=== PATIENT | female | born 1985 | race Caucasian/White ===

== ENCOUNTER → 2019-09-26 16:50 | Outpatient (CLI) | payer OTHER, SELFPAY ==
--- NOTE | 2019-09-26 16:59 | RAD_ITS ---
STUDY: X-RAY CHEST REASON FOR EXAM: Female, 34 years old. pt swallowed a chicken bone 2 days ago, still having symptoms, mid chest pain discomfort from when she ate TECHNIQUE: PA and lateral views of the chest. COMPARISON: None. FINDINGS: The lungs are clear and expanded. There is no demonstrated pleural abnormality. Normal size heart. Normal mediastinum and carleen. Normal visualized pulmonary arteries. Normal visualized aortic arch and descending thoracic aorta. Normal visualized thoracic spine. Normal visualized ribs, clavicles, and shoulders. There is no demonstrated abnormality of the visualized soft tissue structures of the upper abdomen. RAD/Chest PA and Lateral IMPRESSION: Normal x-ray examination of the chest. Electronically Signed: Jelani Garcia MD at 17:16 EST Tel , Service support ,
== END ==
PROVIDERS: PCP Family Medicine; Referring Provider Registered Nurse; Visit Provider Registered Nurse
DX: T18.9XXA Foreign body of alimentary tract, part unspecified, initial encounter (principal)
CPT/HCPCS: 71046

== ENCOUNTER → 2019-10-01 | Outpatient (CLI) | payer OTHER, SELFPAY ==
[2019-10-06 11:53] LABS: HPV Reflexed? NOT INDICATED
== END | disposition home or self-care (01) ==
PROVIDERS: Referring Provider Obstetrics & Gynecology; Visit Provider Obstetrics & Gynecology
DX: Z12.4 Encounter for screening for malignant neoplasm of cervix (principal)
CPT/HCPCS: 88175; G0145

== ENCOUNTER → 2020-07-12 09:13 | Outpatient (CLI) | payer OTHER, SELFPAY ==
[2020-07-12 10:35] LABS: Thyroid Stim Hormone (TSH) 2.01 uIU/mL (0.358-3.74)
== END ==
PROVIDERS: PCP Family Medicine; Referring Provider Family Medicine; Visit Provider Family Medicine
DX: E04.1 Nontoxic single thyroid nodule (principal)
CPT/HCPCS: 36415; 84443

== ENCOUNTER → 2020-07-15 10:41 | Outpatient (CLI) | payer OTHER, SELFPAY ==
--- NOTE | 2020-07-15 10:51 | US_ITS ---
STUDY: THYROID ULTRASOUND REASON FOR EXAM: Female, 35 years old. NODULE FELT ON EXAM TECHNIQUE: Ultrasound evaluation of the thyroid was performed with real-time and static ho-scale imaging. COMPARISON: None. FINDINGS: RIGHT LOBE: The right lobe of the thyroid gland is slightly enlarged and measures 5.2 centimeters x 2.1 cm x 1.4 cm. There is a homogeneous echotexture. There is a 4 mm x 5 mm x 3 mm cystic nodule in the lower pole. LEFT LOBE: The left lobe of the thyroid gland is slightly enlarged and measures 5.2 cm x 2.1 cm x 1.3 cm. There is a homogeneous echotexture. There are no demonstrated solid, cystic or complex lesions. ISTHMUS: The isthmus measures 4 mm. The regional lymph nodes are normal. US/Thyroid IMPRESSION: Mild enlargement of the thyroid gland. 4 mm x 5 mm x 3 mm cyst in the lower pole of the right lobe. Electronically Signed: David Kaur, at 12:43 EST , Service support ,
== END ==
PROVIDERS: PCP Family Medicine; Referring Provider Family Medicine; Visit Provider Family Medicine
DX: E04.1 Nontoxic single thyroid nodule (principal)
CPT/HCPCS: 76536

== ENCOUNTER → 2020-08-13 14:23 | Outpatient (CLI) | payer OTHER, SELFPAY ==
--- NOTE | 2020-08-13 14:26 | BI_ITS ---
MAMMOGRAPHY - BILATERAL SCREENING REASON FOR EXAM: Female, 35 years old. Routine annual screening examination. PERTINENT HISTORY: Grandmother with breast cancer. TECHNIQUE: Digital bilateral breast james (3D mammographic acquisition) in the CC and MLO projections. 2-D mediolateral oblique (MLO) and craniocaudad (CC) views of both breasts were obtained. CAD: Full Field Digital Mammography with Computer Added Detection was performed. COMPARISON: None. Baseline examination. FINDINGS: Breast Composition: The breasts are heterogeneously dense, which may obscure small masses. There are no dominant masses or suspicious calcifications. No other significant abnormalities are identified. BI/SCRN MAMM (CAD)W/JAMES BILAT IMPRESSION: Negative screening mammogram. Yearly followup mammogram recommended. (A) ASSESSMENT CATEGORY: BIRADS Category 1: Negative. A letter regarding these results will be sent to the patient by the facility within 30 days. Approximately 10% of breast cancers are not detected by mammography. A normal mammogram should not delay biopsy of a clinically suspicious abnormality. [id number] Electronically Signed: David Kaur MD at 15:27 EST , Service support ,
== END ==
PROVIDERS: PCP Family Medicine; Visit Provider Obstetrics & Gynecology
DX: Z12.31 Encounter for screening mammogram for malignant neoplasm of breast (principal)
CPT/HCPCS: 77063; 77067

== ENCOUNTER 2020-11-01 05:22 | Day surgery (SDC) | payer OTHER, SELFPAY ==
[2020-10-27 17:07] LABS: Hematocrit 41.4 % (37-47); Hemoglobin 13.6 g/dL (12.0-15.0); Mean Corp Hgb Conc 32.9 g/dL (32-36); Mean Corpuscular Hgb 28.3 pg (27.0-32.0); Mean Corpuscular Volume 86.1 fL (81-99); Mean Platelet Vol. 9.8 fl (6.2-12.0); Platelet Count 350 K/mm3 (150-450); RBC Distribution Width SD 38.2 fl (35.1-43.9); Red Blood Count 4.81 M/mm3 (4.2-5.4); White Blood Count 9.8 K/mm3 (4.4-11.0)
[2020-10-27 17:26] LABS: Creatinine, Serum 0.86 mg/dL (0.55-1.02); EST Glomerular Filtration Rate 80 mL/min (>60); Est Glom Filt Rate - Afr Amer 96 mL/min (>60)
[2020-10-27 17:30] LABS: International Normalized Ratio 1.1; Prothrombin Time (Protime)PT. 13.1 SECONDS (11.7-14.9)
--- NOTE | 2020-10-31 13:18 | PCM.HP.BLA ---
History and Physical Date of Admission: 11/01/20 Surgical History and Physical Benjie Macdonald, a 35 year old female 3 0 0 0 3, presents for RAVH/BS and possible RSO on November 01, 2020 at 7:30. -- Dysmenorrhea, Irregular Menses, Post Ablation Pain -- Dysmenorrhea, spotting which began about a year ago. Benjie claims it started gradually It occurs before and during menses. It is located in the lower abdomen. Benjie characterizes the quality stabbing.; Benjie characterizes the quality pressure. Severity is severe and worsening. It is relieved by OCPs help minimally. It is relieved by NSAIDs minimally. Associated signs and symptoms are bleeds about half to two-thirds of the days each month; spends about 3 days/month on the couch from cramping. Additional comments are: prior tubal and endometrial ablation. MEDICATIONS HISTORY: Current medications prescribed by our practice are: 1. Glucophage XR 750 mg tablet,extended release, One pill by mouth twice a day 2. Mircette (28) 0.15 mg-0.02 mg (21)/0.01 mg (5) tablet, One pill by mouth once a day Patient is also takin. spironolactone 100 mg tablet, One pill by mouth once a day ALLERGIES: Minocin, Swelling-eyes Infections - Chicken pox Illnesses - PCOS Accidents - None Hospitalizations - see surgery Review of Systems: GENERAL - Denies fever, or chills SKIN - Denies skin changes EYES - Denies visual changes EARS - Denies difficulty hearing NOSE - Denies nasal congestion or bleeding MOUTH - Denies sore throat or difficulty swallowing NECK - Denies pain or swelling RESPIRATORY - Denies shortness of breath or wheezing CARDIOVASCULAR - Denies palpitations or chest pain GASTROINTESTINAL - Denies nausea, vomiting, diarrhea, constipation GENITOURINARY - Denies dysuria, frequency of urination, incontinence of urine MUSCULOSKELETAL - Denies joint or muscle pain NEUROLOGICAL - Denies localized numbness or weakness PSYCHIATRIC - Denies depression or anxiety ENDOCRINE - Denies heat or cold intolerance, weight loss or gain HEMATO-IMMUNOLOGIC - Denies excessive bleeding with cuts SOCIAL HISTORY: Alcohol Use - drinks occasionally Smoking - Never Diet - no special diet Lifestyle - moderate stress lifestyle and Exercise - active Seat Belt Use - always Employer - [employer] Job Description - [employer] Illicit Drug Use - None Sexual Activity - Spouse-Sig Other Name - Bola Spouse-Sig 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 12/13/2009 2. 01/15/2012 3. 03/17/2014 and Tubal 4. 2011 Laparoscopic Abdominal Surgery 5. 2016 Endometrial Ablation PHYSICAL EXAM BP- 124/82 Sitting, Right arm, regular cuff Weight- 184.08327 lbs Height- 67 inch BMI:28.88 CONSTITUTIONAL - NAD, well nourished, and well developed SKIN - No rash, lesions, or ulcers HEENT - Normocephalic, PERRLA, EOMI NECK - No nodes, no nuchal rigidity and thyroid normal size and texture LYMPH NODES - Palpation of lymph nodes in neck and groins within normal limits LUNGS - CTA x2 without wheezes, crackles or rales CARDIAC - Regular rate and rhythm without rubs, murmurs, or gallops BREAST - No dominant masses, no tenderness, no axillary adenopathy, no nipple discharge, no skin changes ABDOMEN - Without hepatosplenomegaly, distention, masses, rebound, or guarding; normal bowel sounds; no hernias EXTREMITIES - No edema or calf tenderness NEUROLOGICAL - Cranial nerves II-XII grossly intact PSYCHIATRIC - A and O to time, place, person, mood and affect External Genital Vagina - non-tender without lesions Urethra/Urethral Meatus - non-tender Bladder - non-tender Vagina - vaginal buchanan are pink and moist without loss of rugae and no evidence of atropy Cervix - without cervical motion tenderness and has normal size and features without evident lesions Uterus - multiparous size 6 cm & wt 75-125 g Adnexa - clear without masses or tenderness ASSESSMENT/PLAN: Post Endometrial Ablation Syndrome Discussed options for treatment which have been exhausted except for hysterectomy. Pt desires we proceed with RAVH/BS possible RSO. Discussed RBAs and all questions answered.
[2020-11-01] VITALS (10 sets, daily range): BP systolic 105–115; BP diastolic 54–76; PULSE 65–79; RESP 16; TEMP 36.3–36.6; O2SAT 95–100; BMI 29.1
--- NOTE | 2020-11-01 | IMM_PTH ---
PATIENT: CARSON STALLINGS LOC: [facility] [place] U#:[id number] AGE/SX: 35/F ROOM: RE11/01/[address]: Dr. Solomon Medrano MD : 1985 BED: DIS: 11/01/2020 SPEC #: [id number] RECD: 11/02/20 12:15 STATUS: ALEX REQ #: [id number] NORMA: 11/01/20 00:[address]: Solomon Medrano DEPT: IMMUNOHISTOCHEMISTRY RECD BY: Breonna Lewis ENTERED: 11/02/20 12:15 SP TYPE: IMMUNO OTHR DR: Dr. Solomon Carter MD Tissues: Uterus, NOS Procedures: Nathanael Ret (add) CK20 (add) CK7 (add) CK8 (add) Vimentin (add) Pankeratin (initial) PHYSICIAN & INSTITUTION [place] [id number] SPECIMEN INFORMATION: Tissue Source: Uterus, hysterectomy Clinical Info: Dysmenorrhea status post endometrial ablation Specimen Number: [id number] #7 CPT code: 89526, 05191 x5 METHODOLOGY: Deparaffinized sections of prefer/formalin-fixed tissue or PAP/DQ stained slides are incubated with monoclonal/polyclonal antibodies/oligonucleotide probes. Localization is made via biotin free immunoperoxidase method. Appropriate controls are performed and reacted as expected. Results on target cell population are indicated in the following table: RESULTS: ANTIBODY / CLONE RESULT Block 7 AE1-3 (AE1/AE3/PCK26) positive CK7 (OV-TL12/30) positive CK8 (61ybeoW11) positive CK20 (KS20.8) negative Vimentin (V9) positive CALRET (polyclonal) positive These tests were developed and their performance characteristics determined by [facility]. They may not have been cleared or approved by the U.S. Food and Drug Administration. The FDA has determined that such clearance or approval is not necessary. The above immunohistochemical/dualISH markers are ordered and reviewed by the Pathologist. INTERPRETATION: Uterus, hysterectomy: Adenomatoid tumor. SJ:milli 11/03/2020
[2020-11-01] MEDS: Gabapentin 600 MG Tablet PO (06:03)
[2020-11-01] MEDS: Acetaminophen 500 MG Tablet 1000 MG PO ×2 (06:03→13:12)
[2020-11-01] MEDS: Lactated Ringers 1,000 ML 40 ML IV (06:04)
[2020-11-01 06:35] LABS: Bedside Glucose 92 mg/dL (70-110)
[2020-11-01] MEDS: Cefazolin 2 GM in 0.9% Normal Saline 100 ML IV (07:24)
--- NOTE | 2020-11-01 07:30 | HYST_PTH ---
PATIENT: CARSON STALLINGS LOC: [facility] [place] U#:[id number] AGE/SX: 35/F ROOM: RE11/01/[address]: Dr. Solomon Medrano MD : 1985 BED: DIS: 11/01/2020 SPEC #: [id number] RECD: 11/01/20 10:00 STATUS: ALEX LOTT #: [id number] NORMA: 11/01/20 07:[address]: Solomon Medrano DEPT: SURGICAL PATHOLOGY RECD BY: Natasha Bolaons ENTERED: 11/01/20 12:59 SP TYPE: HYSTERECT OTHR DR: Dr. Solomon Carter MD Tissues: Uterus, NOS Procedures: Surgery Specimen Level V HEADER OPERATION: ERAS, laparoscopic robotic assisted vaginal hysterectomy PRE-OP DIAGNOSIS: Dysmenorrhea status post endometrial ablation TISSUE SUBMITTED: Uterus, cervix, bilateral fallopian tubes, right ovary MICROSCOPIC DIAGNOSIS Uterus, cervix, bilateral fallopian tubes and right ovary, vaginal hysterectomy, bilateral salpingectomy and right oophorectomy: Cervix - mild chronic cystic cervicitis. Endometrium - focal area of mildly weakly secretory endometrium. - Extensive changes consistent with status post endometrial ablation. Myometrium - adenomyosis. Bilateral fallopian tubes - no pathologic diagnosis. Right ovary - physiologic follicular cysts. 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 SJ:rg 11/02/2020 COMMENT Immunohistochemistry ([id number]) supports the above diagnosis. Case has been reviewed in consultation with Dr. Escalera who concurs with the above diagnosis. IDC:AM MICROSCOPIC DESCRIPTION Slides are reviewed. GROSS DESCRIPTION Received in fixative is one container labeled with the patient's name and designated uterus, cervix, bilateral fallopian tubes, right ovary. The specimen consists of a hysterectomy specimen consisting of uterus with cervix and attached right fallopian tube and ovary and portion of attached left fallopian tube and also a detached portion of left fallopian tube. The uterus with cervix weighs 83 gm and measures 9 x 6 x 4 cm. The ectocervical mucosa is unremarkable. The external os is circular in contour. The endocervical canal measures 3 cm in length and the endocervical mucosa is leger, glistening and unremarkable. The endometrial cavity is irregular and measures 4 cm in length and up to 2 cm in width. A portion of the endometrium appears to be denuded. The identified portion of the endometrium measures 0.1 cm in thickness. Sections of the uterine wall do not reveal any mass lesion. The uterine wall measures up to 2 cm in thickness. The right fallopian tube measures 4 cm in length and 0.5 cm in width. It is interrupted in the middle consistent with previous tubal occlusion. The fimbrial end is identified. The soft to cystic right ovary measures 4 x 3 x 2 cm. Sections reveal multiple cysts filled with clear to hemorrhagic fluid. The largest cyst measures 1 cm in greatest dimension. The attached portion of left fallopian tube measures 2 cm in length and 0.5 cm in diameter and the detached portion of fallopian tube measures 3 cm in length and 0.5 cm in diameter. The detached distal portion of the fallopian tube also shows fimbrial end which appears unremarkable. Sections reveal unremarkable cut surfaces. Claims Sorter sections are submitted in nine cassettes as follows: 1 - anterior cervix, 2 - posterior cervix, 3 & 4 - anterior uterine wall, 5 & 6 - posterior uterine wall, 7 - right fallopian tube and ovary, 8??more sections right ovary, 9 - left fallopian tube. / ALECIA:milli TC:5 CPT: 09028
--- NOTE | 2020-11-01 07:33 | OP.PCM_ITS ---
Report of Operation Date of Procedure: 11/01/20 Pre-Operative Diagnosis: Dysmenorrhea Status Post Endometrial Ablation Post-Operative Diagnosis: Dysmenorrhea Status Post Endometrial Ablation Surgery/Procedure Performed:: Robotic Assisted Vaginal Hysterectomy, Bilateral Salpingectomy, Right Oophorectomy Description of Surgical Findings:: 8 cm uterus with normal-appearing fallopian tubes and ovaries with evidence of prior tubal ligation. Some implants in the cul-de-sac suggestive of possible endometriosis. Anterior adhesions of the uterus to the bladder from prior sections x3. sewing machine assembler: Jacinto Garcia Type of Anesthesia:: General - Endotracheal Anesthesiologist: Gracie Eldridge Specimen's removed: Uterus and bilateral tubes, right ovary Drains: Only to straight drain Estimated Blood Loss (mL): Minimal Fluids Replaced: Crystalloid Description of Procedure: Surgeon: Solomon Medrano MD, FACOG Indication: This is a 35 year old patient who has been having problems with severe dysmenorrhea status post endometrial ablation. Conservative measures have not been helpful. The patient has been counseled regarding the risks, benefits and alternatives of this procedure including the possibility of bleeding, infection, and injury to surrounding structures such as bowel bladder and all questions were answered. She understands that if BSO is needed that she will need to be on HRT for an indefinite period of time. Procedure: Pt taken to the operating room where, after induction of general anesthesia, the patient was prepped and draped in the usual sterile fashion and placed on a non-slip Huggy-u-vac device. Trendelenburg test was satisfactory. Bladder was drained of urine with a Lawson catheter which was left in place. Anterior cervix grasped and cervix was dilated to about 3-4 mm. Uterus sounded to 7 cms. 0-Vicryl suture was placed at the 3:00 and 9:00 position of the cervix. A small Advincula Chrome Plater Helper Uterine Manipulator was then placed in the uterus and attention was turned to the laparoscopic portion of the procedure. Ropivocaine 0.5% was injected approximately 2-3 cm superior to the umbilicus and an 8 mm robotic camera port was introduced directly with intraperitoneal p lacement confirmed with CO2 insufflation. 8 mm robotic side ports were introduced under direct visualization approximately 10 cm lateral and 2 cm inferior to the umbilical port. A 5 mm left upper quadrant port was introduced and airseal insufflation with CO2 was started. The above findings were noted. Robot was docked without difficulty and attention turned to the robotic portion of the procedure. Approximately 30 cc of Ropivicaine was used. Bilateral mesosalpinx and right infundibulopelvic ligament were ligated with 35 gomez bipolar coagulation to the level of the round ligament. The posterior aspect of the cervix was identified and then opened for about 1 cm using 25 watt monopolar cautery. Bladder flap was opened and divided to the level of the round ligaments using monopolar cautery. Progressive bites were then ligated on each side of the cervix with 35 gomez bipolar cautery to the uterine arteries. The anterior vaginal mucosa was entered and cervix circumscribed with monopolar cautery. Uterus and attached tubes and right ovary were removed through the vagina. Vaginal cuff was closed first with 0-Vicryl Anthony stitches placed at each angle followed by closure of the mid-cuff with 0-Monocryl V-lock suture in two layers. Pelvis was copiously irrigated with saline and the right ureter was noted to peristalse. Robot was undocked and trocars were removed with as much gas as possible. Incisions were closed with 4-0 Monocryl subcuticular sutures and incisions covered with steri-strips. The patient tolerated the procedure well and was taken to the recovery room in satisfactory condition. Sponge, instruments and needle counts were all correct. There were no apparent complications of the surgery. Ancef 2 gms IV was given prior to the procedure. Estimated Blood Loss: Minimal Specimen to Pathology: Uterus and bilateral fallopian tubes and right ovary Grafts/Implants Used: None - Complications None - Admit VTE Documentation VTE Present on Admission: Yes VTE Mechan Device Prophylaxis: SCD's
[2020-11-01] MEDS: Ropivacaine 0.5% 30 ML Vial (08:00)
--- NOTE | 2020-11-01 09:28 | PCM.DC.VHY ---
Discharge Diet: No Restrictions Discharge Activity: Return to Normal Activity, May Not Drive - while taking narcotic pain medications., May Shower, May Take a Tub Bath May resume sexual activity in: 6-8 weeks Call your doctor if your incision/area has: Continuous Slow Oozing, Sudden Increased Bleeding, Increased Pain/ Swelling, Increased Redness, Foul Smelling Discharge Call your doctor if you observe: Fever of 101 or Higher, Inability to urinate, Inability to have a bowel movement, Using more than one pad per hour Additional Instructions: Nothing in the vagina for 6 weeks please; no lifting more than 20-25 lbs for 6 weeks. Use Ibuprophen 800 mg orally every 8 hours as needed for pain. Can also add Tylenol 1000 mg every 8 hours if needed for pain. If Ibuprophen and Tylenol are not effective then use the Oxycodone but keep in mind it can cause serious constipation issues. Drink lots of water. Call if bleeding more than a pad per hour. Use the colace as constipation is a big issue after this type of surgery. Steps and walking are OK. Activity is encouraged but do not over do it !! Allergies/Adverse Reactions: Allergies minocycline Allergy (Verified 11/01/20 06:08) Other [facility] benign intracranial hypertension Medications to take at Discharge Albuterol Inhaler [Ventolin Hfa (SP)] 1 puff INHALATION Q4H PRN PRN 10/25/20 Metformin HCl [Metformin HCl ER] 750 mg PO BID 10/25/20 Spironolactone 100 mg PO DAILY 10/25/20 Vitamin B Complex 1 each PO DAILY 10/25/20 Docusate Sodium [Colace] 100 mg PO BID PRN #60 capsule 11/01/20 Oxycodone [Oxyir] 5 mg PO Q6H PRN PRN 7 Days #10 tab 11/01/20 The following prescriptions were given: Docusate Sodium [Colace] 100 mg PO BID PRN #60 capsule PRN Reason: Constipation Transmission Status: Received by [facility] Oxycodone [Oxyir] 5 mg PO Q6H PRN PRN 7 Days #10 tab PRN Reason: Pain Score 6-10 Transmission Status: Received by [facility] Primary Care Physician: Solomon Carter MD [Primary Care Provider] - Test Results: Test results from this visit will be discussed in further detail at your follow-up appointment, if applicable. Please Follow Up With: Solomon Medrano MD When: 2 to 3 weeks
[2020-11-01] MEDS: Ondansetron 4 MG/2 ML Vial IV (10:23)
== END 2020-11-01 13:48 | disposition home or self-care (01) ==
LOC: SDC 05:22 → AC 05:23
PROVIDERS: Anesthesiology; PCP Family Medicine; Referring Provider Obstetrics & Gynecology; Visit Provider Obstetrics & Gynecology
PROC: 0UT94ZZ Resection of Uterus, Percutaneous Endoscopic Approach (ICD-10-PCS; CPT 58552; principal; 2020-11-01 07:10)
DX: D28.7 Benign neoplasm of other specified female genital organs (principal); N94.6 Dysmenorrhea, unspecified; N99.85 Post endometrial ablation syndrome; N72 Inflammatory disease of cervix uteri; N80.0 Endometriosis of uterus; N83.01 Follicular cyst of right ovary; J45.990 Exercise induced bronchospasm; Z98.51 Tubal ligation status; Z20.822 Contact with and (suspected) exposure to COVID-19; Z79.899 Other long term (current) drug therapy; Z87.891 Personal history of nicotine dependence
CPT/HCPCS: 00944; 58552; S2900; 36415; 82565; 82962; 85027; 85610; 85730; 86850; 86900; 86901; 87426; 88307; 88341; 88342; C9803; J7120; J2405

== ENCOUNTER 2021-09-14 08:30 | Outpatient (CLI) | payer OTHER, SELFPAY ==
--- NOTE | 2021-09-14 08:32 | BI_ITS ---
MAMMOGRAPHY - BILATERAL SCREENING REASON FOR EXAM: Female, 36 years old. Routine annual screening examination. PERTINENT HISTORY: Grandmother with breast cancer. Aunt with breast cancer. TECHNIQUE: Digital bilateral breast james (3D mammographic acquisition) in the CC and MLO projections. 2-D mediolateral oblique (MLO) and craniocaudad (CC) views of both breasts were obtained. CAD: Full Field Digital Mammography with Computer Added Detection was performed. COMPARISON: Comparison is made with prior study dated 02/10/2021. FINDINGS: Breast Composition: The breasts are heterogeneously dense, which may obscure small masses. There are no dominant masses or suspicious calcifications. No other significant abnormalities are identified. There has been no significant change since the prior study. BI/SCRN MAMM (CAD)W/JAMES BILAT IMPRESSION: Stable bilateral screening mammogram. Yearly follow-up mammogram recommended. (A) ASSESSMENT CATEGORY: BIRADS Category 1: Negative. A letter regarding these results will be sent to the patient by the facility within 30 days. Approximately 10% of breast cancers are not detected by mammography. A normal mammogram should not delay biopsy of a clinically suspicious abnormality. [id number] Electronically Signed: David Kaur MD at 9:32 EST ,
== END 2021-09-14 23:59 | disposition home or self-care (01) ==
LOC: OPBI 08:30
PROVIDERS: PCP Family Medicine; Referring Provider Obstetrics & Gynecology; Visit Provider Obstetrics & Gynecology
DX: Z12.31 Encounter for screening mammogram for malignant neoplasm of breast (principal); Z80.3 Family history of malignant neoplasm of breast
CPT/HCPCS: 77063; 77067

== ENCOUNTER → 2022-07-25 | Outpatient (CLI) | payer BC, SELFPAY ==
--- NOTE | 2022-07-25 13:14 | US_ITS ---
STUDY: THYROID ULTRASOUND REASON FOR EXAM: Female, 37 years old. NODULE TECHNIQUE: Ultrasound evaluation of the thyroid was performed with real-time and static ho-scale imaging. COMPARISON: 07.15.20 FINDINGS: RIGHT LOBE: The right lobe of the thyroid gland measures 5.3 x 2.1 cm. There is a homogeneous echotexture. There is a nodule. This measures 5 x 5 x 3 mm. The lesion is solid / cystic with regular margins and eva nodular doppler flow. LEFT LOBE: The left lobe of the thyroid gland measures 5.6 x 2.1 cm. There is a homogeneous echotexture. There are no demonstrated solid, cystic or complex lesions. ISTHMUS: The isthmus measures 3 mm. US/Thyroid IMPRESSION: There are RIGHT nodule. Prior study demonstrated it to have smooth borders. Currently it has irregular borders. This nodule is mixed cystic and solid, anechoic, [id number], is lobulated or irregular and contains no echogenic foci. TI-RADS points: 3. TI-RADS category: TR3. This nodule is mildly suspicious but no FNA or follow-up is necessary given the small size of this nodule. Electronically Signed: Christiano Sanches MD at 17:56 EST Reading Location ID and State: [facility] / [place] , Service support ,
== END | disposition home or self-care (01) ==
LOC: US 13:07
PROVIDERS: PCP Family Medicine; Referring Provider Family Medicine; Visit Provider Family Medicine
DX: E04.1 Nontoxic single thyroid nodule (principal)
CPT/HCPCS: 76536

== ENCOUNTER → 2022-09-29 | Outpatient (CLI) | payer BC, SELFPAY ==
[2022-09-29 10:14] LABS: Hematocrit 41.4 % (37-47); Hemoglobin 13.8 g/dL (12.0-15.0); Mean Corp Hgb Conc 33.3 g/dL (32-36); Mean Corpuscular Hgb 28.6 pg (27.0-32.0); Mean Corpuscular Volume 85.7 fL (81-99); Mean Platelet Vol. 9.8 fl (6.2-12.0); Platelet Count 341 K/mm3 (150-450); RBC Distribution Width CV 12.1 % (11.6-14.6); RBC Distribution Width SD 38.2 fl (35.1-43.9); Red Blood Count 4.83 M/mm3 (4.2-5.4); White Blood Count 6.9 K/mm3 (4.4-11.0)
[2022-09-29 11:10] LABS: AST(SGOT) 20 U/L (15-37); Alanine Aminotransfer ALT/SGPT 29 U/L (13-56); Albumin, Serum 3.8 g/dL (3.2-5.0); Alkaline Phosphatase 83 U/L (45-117); Anion Gap 8 (5-15); BUN 15 mg/dL (7-18); BUN/Creat Ratio 17.4 RATIO (10-20); CRP 4.14 mg/L (0.0-3.0); Calcium,Total 9.5 mg/dL (8.5-10.1); Chloride 104 mmol/L (98-107); Creatinine, Serum 0.86 mg/dL (0.55-1.02); EST Glomerular Filtration Rate 79 mL/min (>60); Est Glom Filt Rate - Afr Amer 95 mL/min (>60); Globulin 3.8 g/dL (2.2-4.2); Glucose 92 mg/dL (74-106); Potassium 4.2 mmol/L (3.5-5.1); Prolactin 4.3 ng/mL; Protein, Total 7.6 g/dL (6.4-8.2); Sodium Level 138 mmol/L (136-145); T4 Free Direct 0.85 ng/dL (0.76-1.46); Thyroid Stim Hormone (TSH) 0.89 uIU/mL (0.358-3.74)
[2022-09-30 18:30] LABS: ANTINUCLEAR ANTIBODIES DIRECT Negative (Negative)
== END | disposition home or self-care (01) ==
LOC: LAB 09:08
PROVIDERS: PCP Family Medicine; Visit Provider Family Medicine
DX: E04.1 Nontoxic single thyroid nodule (principal); D35.2 Benign neoplasm of pituitary gland; E28.2 Polycystic ovarian syndrome; G43.909 Migraine, unspecified, not intractable, without status migrainosus
CPT/HCPCS: 36415; 80053; 83036; 84146; 84439; 84443; 85027; 86038; 86140

== ENCOUNTER → 2022-10-18 | Outpatient (CLI) | payer BC, SELFPAY ==
--- NOTE | 2022-10-18 06:36 | MRI_ITS ---
EXAM: MR HEAD WITHOUT INTRAVENOUS CONTRAST CLINICAL INDICATION: worsening headache, hx preolactinoma TECHNIQUE: Multiplanar and multisequence MR images of the brain were obtained without intravenous contrast. This report was created using [employer] report [employer] technology. COMPARISON: None. FINDINGS: BRAIN AND EXTRA-AXIAL SPACES: Unremarkable. No intra- or extra-axial hemorrhage. No evidence of acute infarct. No intracranial mass or mass effect. There is preservation of the ho/white matter interface. Posterior fossa structures are unremarkable. Ventricles are appropriate for age. No hydrocephalus. Basal cisterns are patent. SELLA: Unremarkable. Normal sella turcica, pituitary gland, infundibular stalk, optic chiasm and hypothalamus. AUDITORY SYSTEM: Unremarkable. The internal auditory canals are patent. BONES/JOINTS: Unremarkable. No discrete lytic or blastic abnormalities. SINUSES: Unremarkable as visualized. Clear. MASTOID AIR CELLS: Unremarkable as visualized. Clear. ORBITS: Unremarkable as visualized. Both globes, extraocular muscles, optic nerves and retrobulbar fat appear unremarkable. VASCULATURE: Unremarkable as visualized. Normal flow voids in the major intracranial circulation. MRI/Brain without Contrast IMPRESSION: Negative MRI brain without intravenous contrast. Electronically Signed: Christiano Sanches MD at 16:10 EDT ,
== END | disposition home or self-care (01) ==
PROVIDERS: PCP Family Medicine; Referring Provider Family Medicine; Visit Provider Family Medicine
DX: D35.2 Benign neoplasm of pituitary gland (principal)
CPT/HCPCS: 70551

== ENCOUNTER → 2022-10-23 | Outpatient (CLI) | payer BC, SELFPAY ==
[2022-10-23 12:12] LABS: Anion Gap 4 (5-15); BUN 16 mg/dL (7-18); BUN/Creat Ratio 17.6 RATIO (10-20); Calcium,Total 9.9 mg/dL (8.5-10.1); Chloride 105 mmol/L (98-107); Creatinine, Serum 0.91 mg/dL (0.55-1.02); EST Glomerular Filtration Rate 74 mL/min (>60); Est Glom Filt Rate - Afr Amer 89 mL/min (>60); Glucose 90 mg/dL (74-106); Potassium 3.9 mmol/L (3.5-5.1); Sodium Level 137 mmol/L (136-145); T4 Free Direct 0.84 ng/dL (0.76-1.46); Thyroid Stim Hormone (TSH) 0.89 uIU/mL (0.358-3.74)
== END | disposition home or self-care (01) ==
LOC: WOBLAB 11:11
PROVIDERS: PCP Family Medicine; Visit Provider Student in an Organized Health Care Education/Training Program
DX: L70.9 Acne, unspecified (principal)
CPT/HCPCS: 36415; 80048; 84439; 84443

== ENCOUNTER → 2022-10-31 | Outpatient (CLI) | payer BC, SELFPAY ==
--- NOTE | 2022-10-31 14:17 | BI_ITS ---
MAMMOGRAPHY - BILATERAL SCREENING 3-D TOMOSYNTHESIS REASON FOR EXAM: Female, 37 years old. Routine screening PERTINENT HISTORY: Grandmother and aunt with breast cancer.. TECHNIQUE: 2-D mammograms and 3-D Tomosynthesis of the breast (s) were performed. CAD was performed. COMPARISON: 08/13/2020 FINDINGS: The breast composition is heterogeneously dense that can obscure small breast masses. Scattered benign calcifications are seen. No dense spiculated masses or suspicious microcalcifications are identified. No architectural distortion is identified. There is no skin thickening or retraction. There has been no significant change since the prior study. BI/SCRN MAMM (CAD)W/JAMES BILAT IMPRESSION: No mammographic signs of malignancy. Routine yearly mammograms recommended. ASSESSMENT CATEGORY: BIRADS Category 2: Benign. A letter regarding these results will be sent to the patient by the facility within 30 days. FOLLOW UP RECOMMENDATION: Yearly follow up mammogram recommended. (A) Approximately 10% of breast cancers are not detected by mammography. A normal mammogram should not delay biopsy of a clinically suspicious abnormality. Electronically Signed: Harley Bah MD at 15:13 EDT ,
== END | disposition home or self-care (01) ==
LOC: OPBI 14:15
PROVIDERS: PCP Family Medicine; Referring Provider Nurse Practitioner Women's Health; Visit Provider Nurse Practitioner Women's Health
DX: Z12.31 Encounter for screening mammogram for malignant neoplasm of breast (principal)
CPT/HCPCS: 77063; 77067

== ENCOUNTER → 2023-11-20 | Outpatient (CLI) | payer OTHER, SELFPAY ==
--- NOTE | 2023-11-20 17:04 | BI_ITS ---
MAMMOGRAPHY - BILATERAL SCREENING REASON FOR EXAM: Female, 38 years old. Routine annual screening examination. PERTINENT HISTORY: Grandmother with breast cancer. Aunt with breast cancer. Remote right needle breast aspiration. TECHNIQUE: Digital bilateral breast james (3D mammographic acquisition) in the CC and MLO projections. 2-D mediolateral oblique (MLO) and craniocaudad (CC) views of both breasts were obtained. CAD: Full Field Digital Mammography with Computer Added Detection was performed. COMPARISON: Comparison is made with prior study dated October 31, 2022 and April 14, 2022. FINDINGS: Breast Composition: The breasts are heterogeneously dense, which may obscure small masses. There are no dominant masses or suspicious calcifications. No other significant abnormalities are identified. There has been no significant change since the prior study. BI/SCRN MAMM (CAD)W/JAMES BILAT IMPRESSION: Stable bilateral screening mammogram. Yearly follow-up mammogram recommended. (A) ASSESSMENT CATEGORY: BIRADS Category 1: Negative. A letter regarding these results will be sent to the patient by the facility within 30 days. Approximately 10% of breast cancers are not detected by mammography. A normal mammogram should not delay biopsy of a clinically suspicious abnormality. [id number] Electronically Signed: David Kaur MD at 8:39 EDT ,
== END | disposition home or self-care (01) ==
LOC: OPBI 11-21 07:29
PROVIDERS: PCP Family Medicine; Referring Provider Family Medicine; Visit Provider Family Medicine
DX: Z12.31 Encounter for screening mammogram for malignant neoplasm of breast (principal)
CPT/HCPCS: 77063; 77067

== ENCOUNTER 2024-01-14 14:00 | Outpatient (RCR) | payer OTHER, SELFPAY | END 2024-01-20 23:59 | LOC: NS 14:00 | PROVIDERS: PCP Family Medicine; Referring Provider Family Medicine; Visit Provider Family Medicine | DX: Z71.3 Dietary counseling and surveillance (principal); E66.9 Obesity, unspecified | CPT/HCPCS: 97802; 97803 ==

== ENCOUNTER → 2024-12-23 | Outpatient (CLI) | payer BC, SELFPAY ==
--- NOTE | 2024-12-23 07:10 | BI_ITS ---
EXAM: SCRN MAMM (CAD)W/JAMES BILAT DATE: 12/23/2024 CLINICAL HISTORY: F, Age 39 y/o , FAMILY HISTORY OF BREAST CANCER BREAST CANCER RISK ASSESSMENT: Na TECHNIQUE: Bilateral screening digital breast tomosynthesis with 2D and 3D images. Computer aided detection. COMPARISON: Prior exam(s) were compared FINDINGS: TISSUE DENSITY: The breast tissue is heterogenously dense, which may obscure small masses. Bilateral Breast Mammographic Findings: No suspicious masses, calcifications or other abnormalities are identified. BI/SCRN MAMM (CAD)W/JAMES BILAT IMPRESSION: OVERALL FINAL ASSESSMENT: BIRADS 1 NEGATIVE RECOMMENDATION: Routine annual follow-up in 1 Year A letter with findings and recommendations will be mailed to the patient. Reading Location: [id number]
--- OUTSIDE RECORDS SUMMARY | 2024-12-23 07:15 | XMS RPT_ITS | CCD ---
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 Name Role Phone Pilar Rodríguez MD Primary Care Provider PHYSICIAN, NOT RECORDED Primary Care Physician PILAR Gary Primary Care Unavailable VIV ANGEL Referring Unavailable PILAR RODRÍGUEZ Primary Care Unavailable VIV ANGEL Attending Unavailable VIV ANGEL Attending Unavailable PILAR RODRÍGUEZ Primary Care Unavailable Pilar Carter Attending Unavailable Pilar Carter Primary Care Unavailable SchPilar smith Referring Unavailable Pilar Carter Attending Unavailable Pilar Carter Primary Care Unavailable SchPilar smith Referring Unavailable SchPilar smith Primary Care Unavailable SchPilar smith Referring Unavailable Pilar Carter Attending Unavailable SchPilar smith Primary Care Unavailable Maddison Harris Attending Unavailable SchPilar smith Primary Care Unavailable Maddison Harris Attending Unavailable SchPilar smith Primary Care Unavailable Maddison Harris Attending Unavailable Maddison Harris Attending Unavailable Pilar Carter Primary Care Unavailable SchPilar smith Primary Care Unavailable Maddison Harris Attending Unavailable Pilar Carter Primary Care Unavailable Maddison Harris Attending Unavailable Allergies Allergy Classification Reported Allergen(s) Allergy Type Date of Onset Reaction(s) Facility (8 sources) Minocycline; Translations: [MINOCYCLINE] Drug Allergy 6 Other [facility] Work Phone: (2 sources) Seasonal allergy; Translations: [SEASONAL ALLERGIES] Propensity to adverse reactions 0 [facility] (1 source) Minocycline Drug Allergy 5 [facility] Repository Medications Current Medications Medication Drug Class(es) Dates Sig (Normalized) Sig (Original) amoxicillin 875 mg / clavulanate 125 mg oral tablet (1 source) Penicillin-class Antibacterial Start: 04-04-2022 End: 04-14-2022 take 1 tablet by mouth twice daily amoxicillin-clavula cheryle acid (AUGMENTIN) 875-125 mg per tablet Take 1 tablet by mouth twice daily for 10 days. 20 tablet 0 04/04/2022 04/14/2022 Active Comment on above: Take 1 tablet by renny twice daily for 10 days. benzonatate 100 mg oral capsule (1 source) Non-narcotic Antitussive Start: 03-31-2022 End: 04-07-2022 take 1 capsule by mouth every eight hours as needed benzonatate (TESSALON PERLE) 100 mg capsule Take 1 capsule by mouth three times daily as needed for up to 7 days. 21 capsule 0 03/31/2022 04/07/2022 Active Comment on above: Take 1 capsule by mo [facility] three times daily as needed for up to 7 days. docusate sodium 100 mg oral capsule (6 sources) Start: 11-01-2020 take 100 mg by mouth twice daily Docusate Sodium Active 100 MG PO TWICE A DAY 60 November 01, 2020 7:29am 24 hr metFORMIN hydrochloride 750 mg extended release oral tablet (7 sources) Biguanide Start: 05-19-2020 take 750 mg by mouth twice daily Metformin Active 750 MG PO TWICE A DAY October 25, 2020 12:00am Comment on above: Take 750 mg by mouth twice daily. predniSONE 20 mg oral tablet (1 source) Start: 03-09-2023 End: 03-14-2023 predniSONE 20 mg oral tablet Dose : 40 mg = 2 tab(s), Oral, qDay, X 5 day(s), # 10 tab(s), 0 Refill(s), 03/14/23 6:56:00 PM EDT Start Date: 03/09/23 Stop Date: 03/14/23 Status: Ordered spironolactone 100 mg oral tablet (7 sources) Aldosterone Antagonist Start: 10-13-2020 take 100 mg by mouth once daily Spironolactone Active 100 MG PO DAILY October 25, 2020 12:00am Comment on above: Take 1 tablet by [facility] once daily. Vitamin B Complex (6 sources) Start: 10-25-2020 Vitamin B Complex Active 1 EACH PO DAILY October 25, 2020 12:00am Start: 10-25-2020 Vitamin B Comp tom Active 1 EACH PO DAILY October 24, 2020 11:00pm Completed/Discontinued Medications Medication Drug Class(es) Dates Sig (Normalized) Sig (Original) [id number] 200 actuat albuterol 0.09 mg/actuat metered dose inhaler (7 sources) beta2-Adrenergic Agonist Start: 03-31-2022 take 2 puff(s) by inhalation every four hours as needed for cough albuterol HFA (PROVENTIL HFA, VENTOLIN HFA) 90 mcg/actuation inhaler Inhale 2 Puffs as instructed every 4 hours as needed for wheezing/shortnes s of breath (cough). 1 Each 0 03/31/2022 Active Start: 10-25-2020 take 1 puff(s) by in halation every four hours as needed Albuterol Sulfate Active 1 PUFF INHALATION EVERY 4 HOURS NEEDED October 25, 2020 12:00am Comment on above: Inhale 2 Puffs as instructed every 4 crissy rs as needed for wheezing/shortness of breath (cough). B-complex with vitamin C (VITAMIN B COMPLEX-C ORAL) (1 source) take 1 tablet by mouth once daily B-complex with vitamin C (VITAMIN B COMPLEX-C ORAL) Take 1 tablet by mouth once daily. 0 Active Comment on above: Take 1 tablet by mouth once daily. Desog-E.Estradio l/E.Estradiol (6 sources) Progestin, Estrogen Start: 10-26-19 End: 11-02-19 Desog-E.Estradiol/E. Estradiol Discontinued 1 EACH PO DAILY October 25, 2020 12:00am November 01, 2020 9:30am Start: 10-25-2020 End: 11-01-2020 Desog-E.Estradiol/E.Estradio l Discontinued 1 EACH PO DAILY October 24, 2020 11:00pm November 01, 2020 8:30am oxyCODONE hydrochloride 5 mg oral tablet (6 sources) Opioid Agonist Start: 11-01-2020 End: 11-08-2020 take 5 mg by mouth every six hours as needed Oxycodone Discontinued 5 MG PO EVERY 6 HOURS NEEDED 10 7 November 01, 2020 November 08, 2020 12:03am Problems Active Problems Problem Classification Problem Date Documented Date Episodic/Chronic Allergic reactions (1 source) Allergic disposition; Translations: [Allergy, unspecified, initial encounter] Onset: 03-09-2023 Episodic Attention-deficit, conduct, and disruptive behavior disorders (1 source) Attention-deficit hyperactivity disorder, predominantly inattentive type; Translations: [Attention-deficit hyperactivity disorder, predominantly inattentive type] Onset: 10-21-2024 Chronic Other endocrine disorders (1 source) Polycystic ovary syndrome; Translations: [Polycystic ovarian syndrome] Onset: 09-08-2020 09-08-2020 Chronic Other nutritional; endocrine; and metabolic disorders (2 sources) Obesity, unspecified; Translations: [Obesity, unspecified] Onset: 02-11-2024 Chronic Other screening for suspected conditions (not mental disorders or infectious disease) (1 source) Encounter for screening mammogram for malignant neoplasm of breast; Translations: [Encounter for screening mammogram for malignant neoplasm of breast] Onset: 12-19-2024 Episodic Other skin disorders (1 source) Localized swelling, mass and lump, left upper limb; Translations: [Mass of finger of left hand] Onset: 07-04-2023 Episodic Residual codes; unclassified (1 source) Other specified postprocedural states; Translations: [Postoperative state] Onset: 08-01-2023 Episodic Residual codes; unclassified (1 source) Pain, unspecified; Translations: [Pain] Onset: 07-04-2023 Episodic Thyroid disorders (1 source) Thyroid nodule; Translations: [Nontoxic single thyroid nodule] Onset: 09-08-2020 09-08-2020 Chronic Past or Other Problems Problem Classification Problem Date Documented Date Episodic/Chronic Administrative/social admission (2 sources) Dietary counseling and surveillance; Translations: [Dietary counseling and surveillance] Onset: 02-11-2024 Episodic Cancer of cervix (1 source) Low grade squamous intraepithelial lesion on cervical Papanicolaou smear; Translations: [Low grade squamous intraepithelial lesion on cytologic smear of cervix (LGSIL)] Onset: 08-18-2009 08-18-2009 Episodic Other and unspecified benign neoplasm (1 source) Prolactinoma; Translations: [Benign neoplasm of pituitary gland] Onset: 09-08-2020 09-08-2020 Episodic Other nutritional; endocrine; and metabolic disorders (1 source) H/O: hypothyroidism; Translations: [Personal history of other endocrine, nutritional and metabolic disease] Onset: 09-08-2020 09-08-2020 Episodic Other and delivery including normal (1 source) Normal in primigravida; Translations: [Encounter for supervision of normal first , unspecified trimester] Onset: 08-18-2009 08-18-2009 Episodic Results Test Name Value Interpretation Reference Range Facility MR/on 11-18-2024 MR/BMSRexBP [address], [address] [place] [address] OFFICE VISIT Date of Service: 11/18/24 MR#: [id number] Acct: [id number] Name: CARSON STALLINGS Rep #: [id number] : 1985 Provider: PRESTON ruano Age/Sex: 39/F Location: [facility] [place] [facility] [place] Status: Signed Intake Vital Signs 10/21/24 07:32 11/18/24 07:35 Height 5 ft 7 in 5 ft 7 in Weight: 198 lb BMI 31.0 BP 139/88 H 139/91 H Blood Pressure Location Lt brachial Lt brachial Position Sitting Sitting Respiration 16 16 Pulse 83 87 Pulse Source Monitor Monitor BP Intake Visit Reasons: 4wfu Accompanied by: Self Allergies minocycline Allergy (Verified 11/18/24 07:37) Other Medications ???Medication ???Instructions ???Recorded ???Confirmed ???Type albuterol sulfate 90 mcg/actuation 1 puff inhalation Q4H PRN PRN 11/18/24 History aerosol inhaler exercise induced asthma multivitamin 1 tab PO DAILY 01/15/24 11/18/24 H istory dextroamphetamine-amp hetamine 5 mg 5 mg PO QDAY 30 days #30 tabs 11/18/24 Rx tablet dextroamphetamine-amp hetamine 5 mg 5 mg PO QDAY 30 days #30 tabs 11/18/24 Rx tablet dextroamphetamine-amp hetamine 5 mg 5 mg PO QDAY 30 days #30 tabs 11/18/24 Rx tablet dextroamphetamine-amp hetamine ER 20 mg PO QAM 30 days #30 caps 10/2211/18/24 Rx 20 mg 24hr capsule,extend release dextroamphetamine-amp hetamine ER 20 mg PO QAM 30 days #30 caps 10/2211/18/24 Rx 20 mg 24hr capsule,extend release dextroamphetamine-amp hetamine ER 20 mg PO QAM 30 days #30 caps 10/2211/18/24 Rx 20 mg 24hr capsule,extend release PFSH Medical History Tonsillectomy planned delivery delivered Vision problems Tumors Polycystic ovaries Pneumonia Generalized headaches Chronic bronchitis Breast lump Asthma Allergies Surgical History H/O abdominal surgery History of hysterectomy Family History Other Alcoholism Anxiety Breast cancer Colon cancer Depression High cholesterol Hypertension Kidney disease Mental disorder Myocardial infarction Parkinson disease Psychiatric care Severe allergy Skin cancer Thyroid disorder Social History Smoking Status: Former smoker alcohol intake: current details: 3-4 drinks weekly substance use type: does not use what type of physical activity do you participate in: walking frequency: 3-4 times per week HPI History of Present Illness History provided by: patient HPI: Ravin Stallings is a 39 year old female patient presenting today for a follow up evaluation. Reports she has been busy with work and with sports for her children. Does feel she has noticed a benefit from adding a booster dose of medication in the afternoon. Reports she is having more energy and not feeling as mentally exhausted. Does feel productivity and focus have improved in the evenings as well. Does report feelings less forgetful overall. Denies noticing any side effects with adding booster. Has continued to have concerns with her sleep. Has been taking melatonin and does not feel it as been beneficial for her. Denies any concerns with falling asleep but does struggle with staying asleep. 5 hours total, interrupted sleep. Denies any changes in appetite. Denies any increase in depression. Denies SI/HI. Does report noticing she has been less patient but reports she feels this may be related to hormones since she had a hysterectomy 4 years ago. Denies heightened anxiety. Previous similar episode: Yes Age of first onset of symptoms: 21-30 years Review of Systems Constitutional Denies: fever(s), chills, change in weight or fatigue Eyes Denies: change in vision or blurry vision Ears, Nose, Mouth, Throat Reports: neck pain; Denies: throat pain Cardiovascular Denies: chest pain, palpitations or dyspnea Respiratory Denies: dyspnea or wheezing Gastrointestinal Reports: nausea, diarrhea and constipation; Denies: abdominal pain, vomiting or heartburn Genitourinary Denies: dysuria, urinary frequency or urinary urgency Musculoskeletal Reports: back pain and neck pain Integumentary/Breast Denies: rash, pruritus or erythema Neurological Denies: headache(s) Psychiatric Reports: irritability; Denies: anxiety, mood swings, panic attacks, change in sleep pattern, hopelessness, loss of interest, paranoia, memory loss, difficulty concentrating, visual hallucinations, auditory h allucinations, suicidal ideation or homicidal ideation Endocrine Denies: fatigue Hematologic/Lymphatic Denies: easy bruising Allergic/Immunologic Denies: wheezing Exa (more content not included)... Normal [facility] MR/BMS.BPon 10-21-2024 MR/BMS.BP [facility], [address] [place] [address] OFFICE VISIT Date of Service: 10/21/24 MR#: [id number] Acct: [id number] Name: CARSON STALLINGS Rep #: [id number] : 1985 Provider: PRESTON ruano Age/Sex: 39/F Location: [facility] [place] [facility] [place] Status: Signed Intake Vital Signs 05/21/24 08:29 10/21/24 07:32 Height 5 ft 7 in 5 ft 7 in Weight: 198 lb BMI 31.0 BP 134/91 H 139/88 H Blood Pressure Location Rt brachial Lt brachial Position Sitting Sitting Respiration 16 Pulse 69 83 Pulse Source Monitor Monitor BP Intake Visit Reasons: follow up Accompanied by: Self Allergies minocycline Allergy (Verified 10/21/24 07:35) Other Medications ???Medication ???Instructions ???Recorded ???Confirmed ???Type albuterol sulfate 90 mcg/actuation 1 puff inhalation Q4H PRN PRN 10/21/24 History aerosol inhaler exercise induced asthma multivitamin 1 tab PO DAILY 01/15/24 10/21/24 H istory dextroamphetamine-amp hetamine 5 mg 5 mg PO QDAY 30 days #30 tabs 10/21/24 Rx tablet dextroamphetamine-amp hetamine ER 20 mg PO QAM 30 days #30 caps 08/1610/21/24 Rx 20 mg 24hr capsule,extend release PFSH Medical History Tonsillectomy planned delivery delivered Vision problems Tumors Polycystic ovaries Pneumonia Generalized headaches Chronic bronchitis Breast lump Asthma Allergies Surgical History H/O abdominal surgery History of hysterectomy Family History Other Alcoholism Anxiety Breast cancer Colon cancer Depression High cholesterol Hypertension Kidney disease Mental disorder Myocardial infarction Parkinson disease Psychiatric care Severe allergy Skin cancer Thyroid disorder Social History Smoking Status: Former smoker alcohol intake: current details: 3-4 drinks weekly substance use type: does not use what type of physical activity do you participate in: walking frequency: 3-4 times per week HPI History of Present Illness History provided by: patient HPI: Ravin Stallings is a 39 year old female patient presenting today for a follow up evaluation. Does report her medication has been beneficial but does not feel it is as beneficial as it has been in the past. Has been busier at work and has been struggling with focus at work. Does feel her thought process with communicating is lacking as well and has been struggling to find her words and get a complete thought out. Does feel medication is beneficial throughout the morning but does lose effectiveness by mid afternoon. Reports mood has been good and has not been feeling depressed. Since last appointment has finished taper of sertraline and feels good with being off of this. Reports she enjoys being able to feel her emotions more. Denies SI/HI. Denies recent feelings of anxiety outside of situations where anxiety would be normal. Denies panic attacks. Sleep has not been great lately. Does feel sleep issues are related to her mattress. 5-6 hours per night, 3-4 hours uninterrupted. Does wake up in the middle of the night often. Denies difficulties staying asleep. Appetite has been good. Denies any changes in weight. Previous similar episode: Yes Age of first onset of symptoms: 21-30 years Review of Systems Constitutional Reports: fatigue; Denies: fever(s), chills or change in weight Eyes Denies: change in vision or blurry vision Ears, Nose, Mouth, Throat Reports: neck pain; Denies: throat pain Cardiovascular Denies: chest pain, palpitations or dyspnea Respiratory Denies: dyspnea or wheezing Gastrointestinal Reports: nausea, diarrhea and constipation; Denies: abdominal pain, vomiting or heartburn Genitourinary Denies: dysuria, urinary frequency or urinary urgency Musculoskeletal Reports: back pain and neck pain Integumentary/Breast Denies: rash, pruritus or erythema Neurological Denies: headache(s) Psychiatric Reports: memory loss and difficulty concentrating; Denies: anxiety, mood swings, panic attacks, change in sleep pattern, hopelessness, loss of interest, irritability, paranoia, visual hallucinations, auditory hallucinations, suicidal ideation or homicidal ideation Endocrine Reports: fatigue Hematologic/Lymphatic Denies: easy bruising Allergic/Immunologic Denies: wheezing Exam Mental Status Exam - Psych Appearance casually dressed, adequately groomed and no apparent distress Attitude cooperative and calm Activity/Motor Behavior MSE activity/motor behavior finding no adventitious movements and appropriate eye contact Speech regular rate, regular volume and regula (more content not included)... Normal [facility] MR/BMS.BPon 05-21-2024 MR/BMS.BP [facility] [address], [address] [place] [address] OFFICE VISIT Date of Service: 05/21/24 MR#: [id number] Acct: [id number] Name: CARSON STALLINGS Rep #: [id number] : 1985 Provider: PRESTON ruano Age/Sex: 39/F Location: [facility] [place] [facility] [place] Status: Signed Intake Vital Signs 03/26/24 09:01 05/21/24 08:29 Height 5 ft 7 in 5 ft 7 in BP 134/91 H Blood Pressure Location Rt brachial Position Sitting Pulse 69 Pulse Source Monitor BP Intake Visit Reasons: 8wfu Allergies minocycline Allergy (Verified 03/26/24 09:01) Other Medications ???Medication ???Instructions ???Recorded ???Confirmed ???Type albuterol sulfate 90 mcg/actuation 1 puff inhalation Q4H PRN PRN 10/25/20 05/21/24 History aerosol inhaler exercise induced asthma multivitamin 1 tab PO DAILY 01/15/24 05/21/24 History sertraline 50 mg tablet 50 mg PO QDAY 01/15/24 05/21/24 History dextroamphetamine-amp hetamine ER 20 mg PO QAM 30 days #30 caps 05/21/24 05/21/24 Rx 20 mg 24hr capsule,extend release dextroamphetamine-amp hetamine ER 20 mg PO QAM 30 days #30 caps 05/21/24 05/21/24 Rx 20 mg 24hr capsule,extend release dextroamphetamine-amp hetamine ER 20 mg PO QAM 30 days #30 caps 05/21/24 05/21/24 Rx 20 mg 24hr capsule,extend release (Adderall XR) PFSH Medical History Tonsillectomy planned delivery delivered Vision problems Tumors Polycystic ovaries Pneumonia Generalized headaches Chronic bronchitis Breast lump Asthma Allergies Surgical History H/O abdominal surgery History of hysterectomy Family History Other Alcoholism Anxiety Breast cancer Colon cancer Depression High cholesterol Hypertension Kidney disease Mental disorder Myocardial infarction Parkinson disease Psychiatric care Severe allergy Skin cancer Thyroid disorder Social History Smoking Status: Former smoker alcohol intake: current details: 3-4 drinks weekly substance use type: does not use what type of physical activity do you participate in: walking frequency: 3-4 times per week HPI History of Present Illness History provided by: patient HPI: Ravin Stallings is a 39 year old female patient presenting today for an intake evaluation. States it was a struggle to get lisdexamfetamine as some places were out and some places were very costly. Has been switched to Adderall. Denies any noticeable side effects. Does states she has noticed improvements in focus with work and tasks at home, feeling more clarity in thinking, and has been able to remember things better. Does not notice as much energy with Adderall and she felt when she was taking lisdexamfetamine. Has been able to do better with carrying conversations with others and feels her thoughts are able to come through more clearly. Does feel impulse control has improved. Does feel she is still low energy and this is a struggle for her. Admits to difficulty with low motivation but does feel some of this is due to poor habits that she has developed over time. States she is wanting to work through this behaviorally. States mood has been good. Denies feelings of depression. Has not been feeling any irritability. Feels she has been able to see the bigger picture of things where as before it was more tunnel vision. Denies feelings of anxiety. Admits to a decrease in appetite. Is still making sure that she is eating appropriately. Does feel in the morning immediately after medication dosing she is feeling a decreased appetite but it returns to normal by dinner time. States she does not weigh herself but has lost maybe 5 pounds. Reports she is sleeping okay. Does admit to waking up 4-5x per night and is awake anywhere from 10-30 minutes at a time. Has been getting 7 hours per night. Previous similar episode: Yes Age of first onset of symptoms: 21-30 years Review of Systems Constitutional Reports: change in weight (loss of 5 pounds ) and fatigue; Denies: fever(s) or chills Eyes Denies: change in vision or blurry vision Ears, Nose, Mouth, Throat Reports: neck pain; Denies: throat pain Cardiovascular Denies: chest pain, palpitations or dyspnea Respiratory Denies: dyspnea or wheezing Gastrointestinal Reports: nausea, diarrhea and constipation; Denies: abdominal pain, vomiting or heartburn Genitourinary Denies: dysuria, urinary frequency or urinary urgency Musculoskeletal Reports: back pain and neck pain Integumentary/Breast Denies: rash, pruritus or erythema Neurological Denies: headache(s) Psychiatric Reports: memory loss; Denies: anxiety, mood swings, panic attacks, change in sleep (more content not included)... Normal [facility] MR/KATIE.BPon 03-26-2024 MR/KATIE. [facility], [address] [place] [address] OFFICE VISIT Date of Service: 03/26/24 MR#: [id number] Acct: [id number] Name: CARSON STALLINGS Rep #: [id number] : 1985 Provider: PRESTON ruano Age/Sex: 39/F Location: [facility] [place] Status: Signed Intake Vital Signs 02/12/24 08:44 03/26/24 09:00 03/26/24 09:01 Height 5 ft 7 in 5 ft 7 in 5 ft 7 in Weight: 207 lb BMI 32.4 BP 146/98 H Blood Pressure Location Rt brachial Position Sitting Pulse 76 Pulse Oximetry (%) 100 Oxygen Delivery Method room air BP Intake Visit Reasons: 6 wk FU Is patient in pain?: No Allergies minocycline Allergy (Verified 03/26/24 09:01) Other Medications ???Medication ???Instructions ???Recorded ???Confirmed ???Type albuterol sulfate 90 mcg/actuation 1 puff inhalation Q4H PRN PRN 10/25/20 03/26/24 History aerosol inhaler exercise induced asthma multivitamin 1 tab PO DAILY 01/15/24 03/26/24 History sertraline 50 mg tablet 50 mg PO QDAY 01/15/24 03/26/24 History lisdexamfetamine 30 mg capsule 30 mg PO QAM 30 days #30 caps 03/18/24 03/26/24 Rx lisdexamfetamine 30 mg capsule 30 mg PO QAM 30 days #30 caps 03/26/24 03/26/24 Rx lisdexamfetamine 30 mg capsule 30 mg PO QAM 30 days #30 caps 03/26/24 03/26/24 Rx PFSH Medical History Tonsillectomy planned delivery delivered Vision problems Tumors Polycystic ovaries Pneumonia Generalized headaches Chronic bronchitis Breast lump Asthma Allergies Surgical History H/O abdominal surgery History of hysterectomy Family History Other Alcoholism Anxiety Breast cancer Colon cancer Depression High cholesterol Hypertension Kidney disease Mental disorder Myocardial infarction Parkinson disease Psychiatric care Severe allergy Skin cancer Thyroid disorder Social History Smoking Status: Former smoker alcohol intake: current details: 3-4 drinks weekly substance use type: does not use what type of physical activity do you participate in: walking frequency: 3-4 times per week HPI History of Present Illness History provided by: patient HPI: Ravin Stallings is a 39 year old female patient presenting today for an intake evaluation. Reports feeling she is doing well on the lisdexamfetamine. Feels she is able to get focused on things and remain focused on things. Is able to work on new projects and have been able to take in new information and learn about the projects in order to complete them. Feels she does better with holding conversations with others and not being distracted in conversations. Feels energy has been more even. Is feeling she has better motivation. Has not noticed any side effects aside from a decrease in appetite but has been making sure to eat. Is sleeping well and not waking up as often in the middle of the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 REQUEST - ELECTIVE (02/2020) [[id number]] Order #: [id number]: 1 Prescriptions as of 07/04/2023 - buPROPion XL (WELLBUTRIN XL) 300 mg 24 hr tablet Take 1 tablet by mouth every afternoon. - sertraline (ZOLOFT) 50 mg tablet Take 1 tablet by mouth every afternoon. - albuterol HFA (PROVENTIL HFA, VENTOLIN HFA) 90 mcg/actuation inhaler Inhale 2 Puffs as instructed every 4 hours as needed for wheezing/shortness of breath (cough). - spironolactone (ALDACTONE) 100 mg tablet Take 1 tablet by mouth once daily. - B-complex with vitamin C (VITAMIN B COMPLEX-C ORAL) Take 1 tablet by mouth once daily. - metFORMIN ER (GLUCOPHAGE XR) 750 mg 24 hr tablet Take 750 mg by mouth twice daily. Meds Comments as of 08/03/2009: All medications reviewed today/August 03, 2009 Angelia Bell Rn Problem List As Of Date 07/04/2023 Noted Resolved Supervision of Normal First [Z34.00] 08/18/2009 LGSIL on Pap Smear [R87.612] 08/18/2009 Prolactinoma (HCC) [D35.2] 09/08/2020 PCOS (polycystic ovarian syndrome) [E28.2] 09/08/2020 Thyroid nodule [E04.1] 09/08/2020 History of hypothyroidism [Z86.39] 09/08/2020 Encounter Status:Closed by VIV ANGEL on 07/04/23 [facility] XR HAND 3V PA/LAT/OBL LTon 1 09-04-2022 XR HAND 3V PA/LAT/OBL LT * * *Final Report* * * DATE OF EXAM: Jul 04 2023 8:11AM FVX [id number] - XR HAND 3V PA/LAT/OBL LT / PROCEDURE REASON: Pain * * * * Physician Interpretation * * * * EXAMINATION / TECHNIQUE: XR HAND 3V PA/LAT/OBL LT PATIENT/TECHNOLOGIST PROVIDED HISTORY: pain CLINICAL INFORMATION ( PROVIDED BY ORDERING CLINICIAN) : Pain COMPARISON: None RESULT: No acute fracture or dislocation. Joint spaces are maintained. No bony erosions. IMPRESSION: Normal radiographs. Sand Bobber: PSCB Transcribe Date/Time: Jul 05 2023 4:37P Dictated by : RADHA CHRISTIANSON MD This examination was interpreted and the report reviewed and electronically signed by: RADHA CHRISTIANSON MD on Jul 05 2023 4:38PM EST [id number] N [facility] Basophil percentageOrdered B y: Dr. Rodríguez on 10-23-2022 Chloride [Moles/Vol] 105 mmol/L 98-107 [facility] Glucose [Mass/Vol] 90 mg/dL 74-106 [facility] Potassium [Moles/Vol] 3.9 mmol/L 3.5-5.1 [facility] Sodium [Moles/Vol] 137 mmol/L 136-145 [facility] Laboratory - Chemistry and C hemistry - challengeOrdered By: Dr. Rodríguez on 10-23-2022 CO2 [Moles/Vol] 28.0 mmol/L 21.0-32.0 [facility] Free T4 [Mass/Vol] 0.84 ng/dL 0.76-1.46 [facility] Urea nitrogen/Creatinine [Mass ratio] 17.6 mg/mg 10-20 [facility] No Panel InformationOrdered By: Dr. Rodríguez on 10-23-2022 Estimated GFR (MDRD) Amer 89 mL/min >60 [facility] Comment on above: GFR Calc Estimated GFR (MDRD) Non-Af Amer 74 mL/min >60 [facility] Comment on above: Non- GFR Calc Thyroid Stimulating Hormone (TSH) 0.89 uIU/mL 0.358-3.74 [facility] Serum or plasma calcium hope urement (mass/volume)Ordered By: Dr. Rodríguez on 10-23-2022 Calcium [Mass/Vol] 9.9 mg/dL 8.5-10.1 [facility] Serum or plasma creatinine m easurement (mass/volume)Ordered By: Dr. Rodríguez on 10-23-2022 Creatinine [Mass/Vol] 0.91 mg/dL 0.55-1.02 [facility] Comment on above: The validity of the calculated GFR & GFRAA in patients over 70 years has not been determined. Clinical correlation is essential. Serum or plasma urea nitroge n measurement (mass/volume)Ordered By: Dr. Rodríguez on 10-23-2022 Urea nitrogen [Mass/Vol] 16 mg/dL 7-18 [facility] Thin prep Papanicolaou smear with manual screeningOrdered By: Dr. Rodríguez on 10-23-2022 Thin prep Papanicolaou smear with manual screening 4 5-15 [facility] Basophil percentageOrdered B y: Dr. Caballero on 09-29-2022 Bilirubin [Mass/Vol] 0.80 mg/dL 0.20-1.00 [facility] Comment on above: For patients on eltr ombopag therapy, use of Dimension [place] TBIL is not recommended. Chloride [Moles/Vol] 104 mmol/L 98-107 [facility] Glucose [Mass/Vol] 92 mg/dL 74-106 [facility] Potassium [Moles/Vol] 4.2 mmol/L 3.5-5.1 [facility] Protein [Mass/Vol] 7.6 g/dL 6.4-8.2 [facility] Sodium [Moles/Vol] 138 mmol/L 136-145 [facility] WBC (Bld) [#/Vol] 6.9 10*3/uL 4.4-11.0 [facility] Blood erythrocytes count (nu mber/volume)Ordered By: Dr. Caballero on 09-29-2022 RBC (Bld) [#/Vol] 4.83 10*6/uL 4.2-5.4 [facility] Blood hemoglobin measurement (mass/volume)Ordered By: Dr. Caballero on 09-29-2022 Hemoglobin (Bld) [Mass/Vol] 13.8 g/dL 12.0-15.0 [facility] Blood platelet mean volumeOr dered By: Dr. Caballero on 09-29-2022 Platelet mean volume (Bld) [Entitic vol] 9.8 fL 6.2-12.0 [facility] Determination of erythrocyte mean corpuscular volume (MCV)Ordered By: Dr. Caballero on 09-29-2022 MCV (RBC) [Entitic vol] 85.7 fL 81-99 [facility] Hematocrit Auto (Bld) [Volum e fraction]Ordered By: Dr. Caballero on 09-29-2022 Hematocrit (Bld) [Volume fraction] 41.4 % 37-47 [facility] Laboratory - Chemistry and C hemistry - challengeOrdered By: Dr. Caballero on 09-29-2022 ALP [Catalytic activity/Vol] 83 U/L 45-117 [facility] ALT [Catalytic activity/Vol] 29 U/L 13-56 [facility] CO2 [Moles/Vol] 26.0 mmol/L 21.0-32.0 [facility] Free T4 [Mass/Vol] 0.85 ng/dL 0.76-1.46 [facility] Globulin (S) [Mass/Vol] 3.8 g/dL 2.2-4.2 [facility] Urea nitrogen/Creatinine [Mass ratio] 17.4 mg/mg 10-20 [facility] Laboratory - Hematology and Cell countsOrdered By: Dr. Caballero on 09-29-2022 Erythrocyte distribution width (RBC) [Entitic vol] 38.2 fL 35.1-43.9 [facility] Erythrocyte distribution width (RBC) [Ratio] 12.1 % 11.6-14.6 [facility] MCH (RBC) [Entitic mass] 28.6 pg 27.0-32.0 [facility] MCHC Auto (RBC) [Mass/Vol]Or dered By: Dr. Caballero on 09-29-2022 MCHC (RBC) [Mass/Vol] 33.3 g/dL 32-36 [facility] No Panel InformationOrdered By: Dr. Caballero on 09-29-2022 Anti-Nuclear Antibody Screen Negative Negative [facility] Comment on above: Performed at: [facility] [address] [id number] Director: Laci Null PhD, Phone: [phone] Estimated GFR (MDRD) Amer 95 mL/min >60 [facility] Comment on above: GFR Calc Estimated GFR (MDRD) Non-Af Amer 79 mL/min >60 [facility] Comment on above: Non- GFR Calc Thyroid Stimulating Hormone (TSH) 0.89 uIU/mL 0.358-3.74 [facility] Platelets bldOrdered By: Dr. Caballero on 09-29-2022 Platelets (Bld) [#/Vol] 341 10*3/uL 150-450 [facility] Serum or plasma C reactive p rotein measurement (mass/volume)Ordered By: Dr. Caballero on 09-29-2022 CRP [Mass/Vol] 4.14 mg/L 0.0-3.0 [facility] Comment on above: C-Reactive Protein ( CRP) provides useful information for thediagnosis, therapy and monitoring of inflammatory processesand associated diseases. For the evaluation of Relative Riskfor Cardiovascular Disease, a High Sensitivity CRP (HSCRP)should be ordered. Serum or plasma albumin hope urement (mass/volume)Ordered By: Dr. Caballero on 09-29-2022 Albumin [Mass/Vol] 3.8 g/dL 3.2-5.0 [facility] Serum or plasma albumin/glob ulin mass ratioOrdered By: Dr. Caballero on 09-29-2022 Albumin/Globulin [Mass ratio] 1.0 {ratio} 0.9-2.4 [facility] Serum or plasma calcium hope urement (mass/volume)Ordered By: Dr. Caballero on 09-29-2022 Calcium [Mass/Vol] 9.5 mg/dL 8.5-10.1 [facility] Serum or plasma creatinine m easurement (mass/volume)Ordered By: Dr. Caballero on 09-29-2022 Creatinine [Mass/Vol] 0.86 mg/dL 0.55-1.02 [facility] Comment on above: The validity of the calculated GFR & GFRAA in patients over 70 years has not been determined. Clinical correlation is essential. Serum or plasma prolactin me asurement (mass/volume)Ordered By: Dr. Caballero on 09-29-2022 Prolactin [Mass/Vol] 4.3 ng/mL [facility] Comment on above: NORMAL REFERENCE RAN GES FEMALE NON- 2.2 - 30.3 ng/mL 8.1 - 347.6 ng/mL POST-MENOPAUSAL 0.7 - 31.5 ng/mL MALE 2.5 - 17.4 ng/mL Serum or plasma urea nitroge n measurement (mass/volume)Ordered By: Dr. Caballero on 09-29-2022 Urea nitrogen [Mass/Vol] 15 mg/dL 7-18 [facility] Thin prep Papanicolaou smear with manual screeningOrdered By: Dr. Caballero on 09-29-2022 Thin prep Papanicolaou smear with manual screening 20 U/L 15-37 [facility] Thin prep Papanicolaou smear with manual screening 8 5-15 [facility] Whole blood hemoglobin A1c/t otal hemoglobin ratio (mass fraction)Ordered By: Dr. Caballero on 09-29-2022 HbA1c (Bld) [Mass fraction] 5.0 % 3.8-5.6 [facility] Comment on above: Normal < 5.7 % Predi abetic 5.7 - 6.4 % Diabetic >or= 6.5 % Please note range changes. Vital Signs Date Time Vital Sign Value Performing Clinician Hayleyi mikey 03-09-2023 19:15-0400 Diastolic Blood Pressure Non-Invasive [address] ATA ZHAO MD [facility] 03-09-2023 19:15-0400 Heart rate 76 /min DR ATA ZHAO MD [facility] 03-09-2023 19:15-0400 Respiratory rate 16 /min DR ATA ZHAO MD [facility] 03-09-2023 19:15-0400 Systolic Blood Pressure Non-Invasive [address] ATA ZHAO MD [facility] 03-09-2023 18:14-0400 Body temperature 98.06 [degF] DR ATA ZHAO MD [facility] 03-09-2023 18:14-0400 Diastolic Blood Pressure Non-Invasive [address] ATA ZHAO MD [facility] 03-09-2023 18:14-0400 Heart rate 78 /min DR ATA ZHAO MD [facility] 03-09-2023 18:14-0400 Respiratory rate 16 /min DR ATA ZHAO MD [facility] 03-09-2023 18:14-0400 Systolic Blood Pressure Non-Invasive [address] ATA ZHAO MD [facility] Encounters Encounter Date Encounter Type Care Provider Facility Start: 12-23-2024 ambulatory Pilar Carter Facilit y:[facility] Start: 11-18-2024 End: 11-18-2024 ambulatory Maddison Harris Facility:[facility] Start: 10-21-2024 End: 10-21-2024 ambulatory Pilar Carter Facility:[facility] Start: 05-21-2024 End: 05-21-2024 ambulatory Pilar Carter Facility:[facility] Start: 03-26-2024 End: 03-26-2024 ambulatory Pilar Carter Facility:[facility] Start: 02-14-2024 ambulatory Pilar Carter Facilit y:[facility] Start: 02-12-2024 End: 02-12-2024 ambulatory Pilar Carter Facility:[facility] Start: 01-15-2024 End: 01-15-2024 ambulatory Pilar Carter Facility:[facility] Start: 01-14-2024 End: 01-20-2024 ambulatory [facility] Raul Facility:[facility] Start: 11-20-2023 End: 11-20-2023 ambulatory [facility] Work Phone: Start: 11-20-2023 End: 11-20-2023 Patient encounter procedure [facility]-Outpatient Breast [facility] Work Phone: Start: 08-01-2023 End: 08-02-2023 ambulatory VIV ANGEL Facility:[facility] Start: 07-04-2023 End: 07-04-2023 ambulatory PILAR Mcrae RODRÍGUEZ Facility:[facility] Start: 03-09-2023 End: 03-09-2023 Emergency department patient visit DR ATA ZHAO MD [facility] Start: 10-31-2022 End: 10-31-2022 ambulatory [facility] Work Phone: Start: 10-31-2022 End: 10-31-2022 Patient encounter procedure [facility] Start: 10-23-2022 End: 10-23-2022 ambulatory [facility] Work Phone: Start: 10-23-2022 End: 10-23-2022 Patient encounter procedure [facility]Laboratory, [place] [employer] Start: 10-18-2022 End: 10-18-2022 ambulatory [facility] Work Phone: Start: 10-18-2022 End: 10-18-2022 Patient encounter procedure [facility] - [facility] Start: 09-29-2022 End: 09-29-2022 ambulatory [facility] Work Phone: Start: 09-29-2022 End: 09-29-2022 Patient encounter procedure [facility]Laboratory Start: 07-25-2022 End: 07-25-2022 ambulatory [facility] Work Phone: Start: 07-25-2022 End: 01-03-2023 Patient encounter procedure [facility]-Ultrasound, [facility] Start: 04-04-2022 Orders Only Terence MOCTEZUMA.CASE MANAGEMENT ASSOCIATE Work Phone: [facility] Procedures Date Procedure Procedure Detail Performing Clinician Start: 11-20-2023 Screening mammography Start: 10-31-2022 Screening mammography Start: 10-18-2022 MRI of brain without contrast Start: 07-25-2022 US scan of thyroid Plan of Treatment Date Care Activity Detail Author Start: 03-23-2022 Influenza vaccination INFLUENZA (#1) [facility] Start: 2015 HPV TESTING HPV TESTING [facility] Start: 12-13-2011 PAP TESTING PAP TESTING [facility] Start: 01-22-2004 Urine microalbumin profile DTAP,TDAP ,TD (1 - Tdap) [facility] Start: 2003 HEPATITIS C SCREENING HEPATITIS C SC REENING [facility] Start: 2003 HIV SCREENING HIV SCREENING [facility] Start: 1997 Adult depression scr eening assessment DEPRESSION SCREENING [facility] Start: 1985 COVID-19 VACCINE (#1) COVID-19 VACCI NE (#1) [facility] Start: 1985 HEPATITIS B (1 of 3 - 3-dose series) HEPATITIS B (1 of 3 - 3-dose series) [facility] Payers Date Payer Category Payer Private Health Insurance [id number] 2023 Self-pay [id number] 2022 Unknown [id number] 2020 Unknown [employer] PPO [id number] 2020-Present [phone] [address] [place] [address] PPO [id number] Unknown [employer] [id number] Unknown [facility] [id number] Unknown [id number] 62 Unknown [id number] 62 Unknown [id number] 62 Unknown [id number] 62 Unknown [id number] 62 Unknown [id number] 62 Unknown [id number] 62 Unknown [id number] 62 Unknown [id number] 62 Social History Date Type Detail Facility Start: 06-04-2020 [facility] Work Phone: End: 04-06-2009 History of tobacco use Current smoker [facility] Work Phone: End: 04-06-2009 History of tobacco use Cigarette Smoker [facility] Work Phone: Start: 06-04-2020 Cigarettes smoked current (pack per day) - Reported 0.5 [facility] Start: 06-04-2020 Tobacco use and exposure Smokeless tobacco non-user [facility] Work Phone: Start: 03-08-2022 Alcohol intake Current drinke r of alcohol (finding) [facility] Start: 08-03-2009 History SDOH Alcohol Comment occasional, NOT WHILE [facility] Start: 1985 Sex Assigned At [facility] Start: 10-25-2020 End: 10-25-2020 Tobacco smoking status NHIS Unknown if ever smoked [facility] Tobacco smoking status No Smokin g Status Entered [facility] Functional Status Date Assessment Result Facility 03-09-2023 Functional Status Standard Safet y ID band on, Call device within reach, Bed in low position, Wheels locked, Upper/Half-Length side-rails up, Bedside Cart Locked, Safety level maintained [facility] Mental Status Date Assessment Result Facility 03-09-2023 Mental Status Orientation Oriented x 4 [facility]3] Progress note 08-01-2023 Note Date & Type Note Facility 08-01-2023 Note HNO ID: [id number] Author: VIV ANGEL MD Service: ? Author Type: Physician Type: Progress Notes Filed: 08/03/2023 10:34 Note Text: Carson Stallings underwent volar hand mass excision on 07/19/2023. The patient returns today for follow-up. The patient reports no major issues since surgery. Final pathology of the mass revealed FINAL DIAGNOSIS A. Skin, finger of left hand, excision: - Ganglion cyst. SDB/CP/mm/07/24/2023 . This was reviewed and discussed with the patient. On exam of the left hand, the incision was healed without evidence of infection. All sutures removed. (+) left thumb opposition. Able to make a full composite left fist. No extension lag on left finger. ASSESSMENT: Postoperative state (primary encounter diagnosis) PLAN: We instructed the patient to start performing scar massage for 5-10 minutes each time, 3x per day. No lifting > 5 lbs using the operated hand for 2 more weeks. After that, there will be no restrictions, and the patient may use the operated hand as tolerated. Return to clinic as needed. The patient is seen and examined by Dr. Angel and the following reflects his/her service. Scribed by Buddy Hayden RN I agree with the Chief Complaint, ROS, and Past Histories independently gathered by the clinical applications support specialist and the remaining scribed note accurately describes my personal service to the patient. Viv Angel MD Hand AND Upper Extremity Surgery This note was generated with voice recognition software and may contain errors, including spelling, grammar, syntax and misrecognition of what was dictated, that are not fully corrected. [facility] Progress note 07-04-2023 Note Date & Type Note Facility 07-04-2023 Note HNO ID: [id number] Author: Viv Angel MD Service: ? Author Type: Physician Type: Progress Notes Filed: 07/04/2023 2:54 PM Note Text: [facility] Hand AND Upper Extremity Surgery New Patient Evaluation Consulting Provider: No referring provider defined for this encounter. CC: Mass on volar palm of left hand. HPI: Ms. Stallings is a right hand dominant 38 year old female who presents with a chief complaint of mass on volar aspect of left mcp joint. The patient denies history of hand trauma. The mass has been there for the past several months, and has a history of size fluctuation, depending on the amount of hand motion. The mass does cause discomfort when the patient attempt to second worker objects. PAST MEDICAL HISTORY Diagnosis Date - Abnormal glandular Papanicolaou smear of cervix LGSIL 05/31 - Benign intracranial hypertension DRUG REACTION - Bronchitis, chronic (HCC) - Endometriosis - H1N1 Influenza 05/31 - PMH - PAST MEDICAL HISTORY OF pappiloedema both eyes - Pneumonia 05/31 Current Outpatient Medications Medication Sig Dispense Refill - buPROPion XL (WELLBUTRIN XL) 300 mg 24 hr tablet Take 1 tablet by mouth every afternoon. - sertraline (ZOLOFT) 50 mg tablet Take 1 tablet by mouth every afternoon. - albuterol HFA (PROVENTIL HFA, VENTOLIN HFA) 90 mcg/actuation inhaler Inhale 2 Puffs as instructed every 4 hours as needed for wheezing/shortness of breath (cough). (Patient not taking: Reported on 07/04/2023) 1 Each 0 - spironolactone (ALDACTONE) 100 mg tablet Take 1 tablet by mouth once daily. (Patient not taking: Reported on 07/04/2023) 90 tablet 2 - B-complex with vitamin C (VITAMIN B COMPLEX-C ORAL) Take 1 tablet by mouth once daily. (Patient not taking: Reported on 07/04/2023) - metFORMIN ER (GLUCOPHAGE XR) 750 mg 24 hr tablet Take 750 mg by mouth twice daily. (Patient not taking: Reported on 07/04/2023) No current facility-administered medications for this visit. ALLERGIES Allergen Reactions - Minocycline BENIGN INTRACRANIAL HTN - Seasonal Allergies PE: Exam of the left upper limb revealed: (+) mass on volar aspect of long mcp, measuring 0.8 cm. The mass was not pulsatile, and had (-) Tinel sign. The mass was not adherent to the overlying skin. The mass did not move with finger flexion/extension. RADIOLOGY: X-Rays of the left hand performer today revealed no acute process. Formal read pending. Assessment: Mass of finger of left hand (primary encounter diagnosis) Plan: We discussed with Ms. Stallings the diagnosis and proposed treatment options including observation, aspiration, surgery. Risks, benefits, alternatives were discussed. She would like to proceed with surgery for excision of the mass. Medical Decision Making: Problems: Moderate: New problem with uncertain prognosis Data: Unique test result(s) reviewed: 1 Risk: Moderate: Decision on minor surgery w/ risk factors Medical Decision Making Level: 4 - Moderate Viv Angel MD July 04, 2023 2:50 PM [facility] Progress note 07-04-2023 Note Date & Type Note Facility 07-04-2023 Note HNO ID: [id number] Author: Mary Hudson RT(R) Service: ? Author Type: Technologist Type: Progress Notes Filed: 07/04/2023 8:11 AM Note Text: Radiology Service Progress Note PATIENT NAME: Carson Stallings DATE OF SERVICE: July 04, 2023 TIME: 8:10 AM PATIENT IDENTITY VERIFICATION COMPLETED USING TWO (2) IDENTIFIERS: Name and Date of confirmed by patient verbally and Name and Date of confirmed by identification band. FALL SCREENING: Has the patient had 2 falls in the last year or 1 fall with injury or currently using an Ambulatory Assistive Device (Walker, Cane, Wheelchair, Crutches, etc.)? No PATIENT GENDER DATA: Female. status: : No status: NO. PATIENT RELEVANT IMPLANT DATA REVIEWED: Not Applicable RADIOLOGY DEPARTMENT: General X-ray: Exam(s) Completed: Upper Extremity X-Ray(s): Hand, left PERIPHERAL IV DATA: Not applicable SIGNED BY: ROSALINO Pathak) July 04, 2023 8:10 AM [facility] Discharge instructions 03-09-2023 Note Date & Type Note Facility 03-09-2023 Hospital Discharg e instructions Patient Education 03/09/2023 18:57:07 Allergic Reaction, Other (General) General Allergic Reactions An allergic reaction is a set of symptoms caused by an allergen. An allergen is something that causes a person s immune system to react. When a person comes in contact with an allergen, it causes the body to release chemicals. These include the chemical histamine. Histamine causes swelling and itching. It may affect the entire body. This is called a general allergic reaction. Often symptoms affect only 1 part of the body. This is called a local allergic reaction. You are having an allergic reaction. Almost anything can cause one. Different people are allergic to different things. It is usually something that you ate or swallowed, came into contact with by getting or putting it on your skin or clothes, or something you breathed in the air. This can be very annoying and sometimes scary. Most of us think of allergic reactions when we have a rash or itchy skin. Symptoms can include: Itching of the eyes, nose, and roof of the mouth Runny or stuffy nose Watery eyes Sneezing or coughing A blocked feeling in the ear Red, itchy rash called hives Red and purple spots Rash, redness, welts, blisters Itching, burning, stinging, pain Dry, flaky, cracking, scaly skin Severe symptoms include: Swelling of the face, lips, or other parts of the body Hoarse voice Trouble swallowing, feeling like your throat is closing Trouble breathing, wheezing Nausea, vomiting, diarrhea, stomach cramps Feeling faint or lightheaded, rapid heart rate Sometimes the cause may be obvious. But there are so many things that can cause a reaction that you may not be able to figure out. The most important things to help find your allergen are: Remembering when it started What you were doing at the time or just before that Any activities you were involved in Any new products or contacts Below are some common causes. But remember that almost anything can cause a reaction. You may not even be aware that you came into contact with one of these things: Dust, mold, pollen Plants (common ones are poison raheel and poison oak, but there are many others) Animals Foods such as shrimp, shellfish, peanuts, milk products, gluten, and eggs. Also food colorings, flavorings, and additives. Insect bites or stings such as bees, mosquitos, fleas, ticks Medicines such as penicillin, sulfa medicines, amoxicillin, aspirin, and ibuprofen. But any medicine can cause a reaction. Jewelry such as nickel or gold. This can be new, or something you ve worn for a while, including zippers and buttons. Latex such as in gloves, clothes, toys, balloons, or some tapes. Some people allergic to latex may also have problems with foods like bananas, avocados, kiwi, papaya, or chestnuts. Lotions, perfumes, cosmetics, soaps, shampoos, skincare products, nail products Chemicals or dyes in clothing, linen, scroll saw operator, hair dyes, soaps, iodine Many viruses and common colds can cause a rash that is not an allergic reaction. Sometimes it is hard to tell the difference between allergies, sensitivity, or an intolerance to something. This is especially true with food. Many things can cause diarrhea, vomiting, stomach cramps, and skin irritation. Home care The goal of treatment is to help relieve the symptoms and get you feeling better. The rash will usually fade over several days. But it can sometimes last a couple of weeks. Over the next couple of days, there may be times when it is gets a little worse, and then better again. Here are some things to do: If you know what you are allergic to, stay away from it. Future reactions could be worse than this one. Avoid tight clothing and anything that heats up your skin (hot showers or baths, direct sunlight). Heat will make itching worse. An ice pack will relieve local areas of intense itching and redness. To make an ice pack, put ice cubes in a plastic bag that seals at the top. Wrap it in a thin, clean towel. Don t put the ice directly on the skin because it can damage the skin. Oral diphenhydramine is an zsqa-alh-clfklof antihistamine sold at pharmacy and grocery stores. Unless a prescription antihistamine was given, diphenhydramine may be used to reduce itching if large areas of the skin are involved. It may make you sleepy. So be careful using it in the daytime or when going to school, working, or driving. Note: Don t use diphenhydramine if you have glaucoma or if you are a man with trouble urinating due to an enlarged prostate. There are other antihistamines that won t make you so sleepy. These are good choices for daytime use. Ask your pharmacist for suggestions. Don t use diphenhydramine cream on your skin. It can cause a further reaction in some people. To help prevent an infection, don't scratch the affected area. Scratching may worsen the reaction and damage your skin. It can also lead to an infection. Always check the affected for signs of an infection. Call your healthcare provider and ask what you can use to help decrease the itching. To decrease allergic reactions, try the following: Use heat-steam to clean your home Use high-efficiency particulate (HEPA) vacuums and filters Stay away from food and pet triggers Kill any cockroaches Clean your house often Follow-up care Follow up with your healthcare provider, or as advised. If you had a severe reaction today, or if you have had several mild to medium allergic reactions in the past, ask your provider about allergy testing. This can help you find out what you are allergic to. If your reaction included dizziness, fainting, or trouble breathing or swallowing, ask your provider about carrying auto-injectable epinephrine. Call 911 Call 911 if any of these occur: Trouble breathing or swallowing, wheezing Cool, moist, pale skin Shortness of breath Hoarse voice or trouble speaking Confused Very drowsy or trouble awakening Fainting or loss of consciousness Rapid heart rate Feeling of dizziness or weakness or a sudden drop in blood pressure Feeling of doom Feeling lightheaded Severe nausea or vomiting, or diarrhea Seizure Swelling in the face, eyelids, lips, mouth, throat or tongue Drooling When to seek medical advice Call your healthcare provider right away if any of these occur: Spreading areas of itching, redness or swelling Nausea or stomach cramps or abdominal pain Continuing or recurring symptoms Spreading areas of redness, swelling, or itching Signs of infection at the affected site: oSpreading redness oIncreased pain or swelling oFluid or colored drainage from the site oFever of 100.4 F (38 C) or above lasting for 24 to 48 hours, or as directed by your provider 1419-2331 [employer] [address] [place] [address]. All rights reserved. This information is not intended as a substitute for professional medical care. Always follow your healthcare professional's instructions. Follow Up Care 03/09/2023 18:09:09 With:MICHELLE BASS Address: [address] [place] [address] [phone] Business (1) When:2-4 days With:Follow up with primary care provider Address:Unknown When:2-4 days Comments:Take prednisone as prescribed. You may take Benadryl or Zyrtec as well. Follow-up with your doctor or if you do not have a doctor you may follow-up with Dr. Bass. Return if any worsening or concerning symptoms. [facility] Emergency department Discharge summary 03-09-2023 Note Date & Type Note Facility 03-09-2023 Emergency department Discharge summary Discharge Instructions Thank you for allowing [facility] to assist you with your healthcare needs. The following is important discharge information regarding your hospital visit. Diagnosis from Today's Visit Allergic reaction Allergic reaction What to Do Next Instructions from Your Care Team No qualifying data available. Post Acute Orders No qualifying data available. You Need to Schedule the Following Appointments Follow Up with MICHELLE BASS When Within 2-4 days Where: [address] [place] [address]- [phone] Business (1) Follow Up with Follow up with primary care provider When Within 2-4 days Why: Take prednisone as prescribed. You may take Benadryl or Zyrtec as well. Follow-up with your doctor or if you do not have a doctor you may follow-up with Dr. Bass. Return if any worsening or concerning symptoms. Allergies NKA Medications Please ask your primary doctor or pharmacist before taking any other medication not listed, including over the counter drugs, herbal medications, vitamins and or supplements as they may interact with your home medications. What How Much When Instructions Last Dose New predniSONE (predniSONE 20 mg oral tablet) 2 tab(s) by mouth Once a day Duration: 5 Days Printed Prescription Please take this list to your next doctor s visit. Bring all medications you take, including over the counter medications, herbals and other supplements with you to your doctor s visit. Patients and families are reminded to discard old lists and to update any records with all medication providers or retail pharmacies. Education Materials General Allergic Reactions An allergic reaction is a set of symptoms caused by an allergen. An allergen is something that causes a person s immune system to react. When a person comes in contact with an allergen, it causes the body to release chemicals. These include the chemical histamine. Histamine causes swelling and itching. It may affect the entire body. This is called a general allergic reaction. Often symptoms affect only 1 part of the body. This is called a local allergic reaction. You are having an allergic reaction. Almost anything can cause one. Different people are allergic to different things. It is usually something that you ate or swallowed, came into contact with by getting or putting it on your skin or clothes, or something you breathed in the air. This can be very annoying and sometimes scary. Most of us think of allergic reactions when we have a rash or itchy skin. Symptoms can include: Itching of the eyes, nose, and roof of the mouth Runny or stuffy nose Watery eyes Sneezing or coughing A blocked feeling in the ear Red, itchy rash called hives Red and purple spots Rash, redness, welts, blisters Itching, burning, stinging, pain Dry, flaky, cracking, scaly skin Severe symptoms include: Swelling of the face, lips, or other parts of the body Hoarse voice Trouble swallowing, feeling like your throat is closing Trouble breathing, wheezing Nausea, vomiting, diarrhea, stomach cramps Feeling faint or lightheaded, rapid heart rate Sometimes the cause may be obvious. But there are so many things that can cause a reaction that you may not be able to figure out. The most important things to help find your allergen are: Remembering when it started What you were doing at the time or just before that Any activities you were involved in Any new products or contacts Below are some common causes. But remember that almost anything can cause a reaction. You may not even be aware that you came into contact with one of these things: Dust, mold, pollen Plants (common ones are poison raheel and poison oak, but there are many others) Animals Foods such as shrimp, shellfish, peanuts, milk products, gluten, and eggs. Also food colorings, flavorings, and additives. Insect bites or stings such as bees, mosquitos, fleas, ticks Medicines such as penicillin, sulfa medicines, amoxicillin, aspirin, and ibuprofen. But any medicine can cause a reaction. Jewelry such as nickel or gold. This can be new, or something you ve worn for a while, including zippers and buttons. Latex such as in gloves, clothes, toys, balloons, or some tapes. Some people allergic to latex may also have problems with foods like bananas, avocados, kiwi, papaya, or chestnuts. Lotions, perfumes, cosmetics, soaps, shampoos, skincare products, nail products Chemicals or dyes in clothing, linen, scroll saw operator, hair dyes, soaps, iodine Many viruses and common colds can cause a rash that is not an allergic reaction. Sometimes it is hard to tell the difference between allergies, sensitivity, or an intolerance to something. This is especially true with food. Many things can cause diarrhea, vomiting, stomach cramps, and skin irritation. Home care The goal of treatment is to help relieve the symptoms and get you feeling better. The rash will usually fade over several days. But it can sometimes last a couple of weeks. Over the next couple of days, there may be times when it is gets a little worse, and then better again. Here are some things to do: If you know what you are allergic to, stay away from it. Future reactions could be worse than this one. Avoid tight clothing and anything that heats up your skin (hot showers or baths, direct sunlight). Heat will make itching worse. An ice pack will relieve local areas of intense itching and redness. To make an ice pack, put ice cubes in a plastic bag that seals at the top. Wrap it in a thin, clean towel. Don t put the ice directly on the skin because it can damage the skin. Oral diphenhydramine is an oims-lyl-iwfewkr antihistamine sold at pharmacy and grocery stores. Unless a prescription antihistamine was given, diphenhydramine may be used to reduce itching if large areas of the skin are involved. It may make you sleepy. So be careful using it in the daytime or when going to school, working, or driving. Note: Don t use diphenhydramine if you have glaucoma or if you are a man with trouble urinating due to an enlarged prostate. There are other antihistamines that won t make you so sleepy. These are good choices for daytime use. Ask your pharmacist for suggestions. Don t use diphenhydramine cream on your skin. It can cause a further reaction in some people. To help prevent an infection, don't scratch the affected area. Scratching may worsen the reaction and damage your skin. It can also lead to an infection. Always check the affected for signs of an infection. Call your healthcare provider and ask what you can use to help decrease the itching. To decrease allergic reactions, try the following: Use heat-steam to clean your home Use high-efficiency particulate (HEPA) vacuums and filters Stay away from food and pet triggers Kill any cockroaches Clean your house often Follow-up care Follow up with your healthcare provider, or as advised. If you had a severe reaction today, or if you have had several mild to medium allergic reactions in the past, ask your provider about allergy testing. This can help you find out what you are allergic to. If your reaction included dizziness, fainting, or trouble breathing or swallowing, ask your provider about carrying auto-injectable epinephrine. Call 911 Call 911 if any of these occur: Trouble breathing or swallowing, wheezing Cool, moist, pale skin Shortness of breath Hoarse voice or trouble speaking Confused Very drowsy or trouble awakening Fainting or loss of consciousness Rapid heart rate Feeling of dizziness or weakness or a sudden drop in blood pressure Feeling of doom Feeling lightheaded Severe nausea or vomiting, or diarrhea Seizure Swelling in the face, eyelids, lips, mouth, throat or tongue Drooling When to seek medical advice Call your healthcare provider right away if any of these occur: Spreading areas of itching, redness or swelling Nausea or stomach cramps or abdominal pain Continuing or recurring symptoms Spreading areas of redness, swelling, or itching Signs of infection at the affected site: oSpreading redness oIncreased pain or swelling oFluid or colored drainage from the site oFever of 100.4 F (38 C) or above lasting for 24 to 48 hours, or as directed by your provider [id number] [employer]. [address] [place] [address], [place] [address]. All rights reserved. This information is not intended as a substitute for professional medical care. Always follow your healthcare professional's instructions. Additional Information VACCINATE! IT SAVES LIVES! Members of the community who have not yet received the COVID-19 vaccine and would like to receive it can visit one of [facility] vaccine clinics. There are many vaccine clinic locations within the [facility]. For locations and available times, please visit [email or web address] It is important to note that some COVID mobile vaccine clinics are held outdoors and may be canceled in rainy or stormy conditions. To learn more about pediatric vaccinations (ages 5-11), we invite you to visit the [employer] webpage. https://[email or web address][email or web address]/pa [email or web address]-Jggee-Czsenopoyum-Freque bwhm-Pxzop-Ykvsbulpp.html To learn more about the COVID-19 vaccine, we invite you to visit the CDC website for a list of frequently asked questions. https://www.cdc.gov/coronavirus/2 019-ncov/vaccines/faq.html [facility] Patient Portal Access Instructions: Stay connected with your healthcare team and access your personal medical information anytime with the [employer] Patient Portal. If you would like a full copy of your medical records please contact the [facility] Medical Records Department Sunday through Sunday between 8a.m. and 4:30p.m. Please follow the directions below to access the portal: 1.Access the email account you provided upon registration to the hospital.2.Look for an invitation email from [facility].3.Open the email and access the invitation link: Accept Invitation to [employer]4.Fill in the required longo to create your account. Sign into [email or web address] with your username and password that you created in the above steps to stay up to date. You can then view a summary of results, a summary of your visits, and the ability to download your summaries to your computer or send the information securely to a physician. Remember that your healthcare information is confidential, so carefully consider who you will allow to register on the [employer] Patient Portal for access to your information. You can also access the [employer] Patient Portal on the [employer] stuart. Simply click on Health Records under Health Data and then click on the [employer] logo. HOW TO SAFELY DISPOSE OF PRESCRIPTION MEDICATIONS Please use one of the following methods to safely dispose of your unused medications. 1.Use a drug disposal kit: the drug disposal pouch allows you to safely discard your old and unused drugs. Ask your nurse to give you one when you are discharged.2.Visit a local take-back location: Many local pharmacies and police departments have programs that collect old and unwanted prescription drugs. Call your local pharmacy or go to http://Miroi.[employer] Materials/3Y3Gz7z to find one close to you.3.Make use of household items: Use cat litter or old coffee grounds to dispose medications if other options are not available. Mix your drugs with these household products, seal them in an airtight container and throw it into the garbage. Call [facility]: [phone] to be sure your drugs can be disposed of in this way. Some medicines may require a different approach.4.Never flush your medications down the toilet. IF YOU HAVE BEEN PRESCRIBED AN OPIOIDS FOR PAIN If you have been prescribed an opioid (such as hydrocodone, oxycodone or morphine), it is critical to understand the possible side effects and risks of opioid pain medications. Even when taken as directed, opioids can have several side effects including: Tolerance, meaning you might need to take more of a medication for the same pain relief. Nausea, vomiting and/or constipation. Sleepiness, dizziness, dry mouth, confusion, depression or itching. Physical dependence, meaning you have withdrawal symptoms when a medication is stopped ? this can develop within a few days. KNOW YOUR RESPONSIBILITIES It is important to know exactly how much and how often to take the opioid pain medications you are prescribed. Never take opioids in higher amounts or more often than prescribed. Do not combine opioids with alcohol or other drugs that cause drowsiness, such as benzodiazepines, also known as benzos, including diazepam and alprazolam, muscle relaxants or sleep aids. Never sell or share prescription opioids. This is illegal. Store opioids in a secure place and out of reach of others (including children, family, friends and visitors). The last page(s) of this document has been signed and retained as a CHART COPY Signatures Patient Education Materials Allergic Reaction, Other (General) Medication Leaflets My discharge plan and instructions have been reviewed and explained to me and I,CARSON STALLINGS understand my current condition and have read and understand these discharge instructions. I have received a written copy of the plan/instructions. If I have questions, I am aware that I should contact my doctor. Patient/Administrative Manager Signature: Date/Time: Relationship to Patient: ____ Witness Name/Signature: Date/Time: [facility] Evaluation + Plan note Note Date & Type Note Facility Evaluation + Plan note No data available for this section [facility] Evaluation note Note Date & Type Note Facility Evaluation note No assessment information [facility] Work Phone: Chief Complaint and Reason for Visit Chief Complaint NODULE Chief Complaint NODULE Benign neoplasm of pituitary gland Chief Complaint NODULE Benign neoplasm of pituitary gland SCREENING Chief Complaint SCREENING Advance Directives No Advanced Directives Records Found Advance Directive Response Recorded Date/ Time Living Will No October 25, 2020 8:11am Power of Inside Account Representative No October 25 8:11am Advance Directive Response Recorded Date/ Time Living Will No October 25, 2020 9:11am Power of Inside Account Representative No October 25 9:11am Summary Purpose Family History No Family History Records Found Additional Source Comments Source Comments (unrecognize d section and content) In the event this informatio n is protected by the Federal Confidentiality of Alcohol and Drug Abuse Patient Records regulations: The Federal rules restrict any use of the information to criminally investigate or prosecute any alcohol or drug abuse patient.[facility] Care Teams (unrecognized sec tion and content) 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 Pilar Rodríguez MD Family Provider Active Dr. Pilar Carter MD Primary Care Provider Active Team Status: Inactive Member Role Status Dates Dr. Pilar Carter MD Primary Care Pr ovider, Attending Provider, Referring Provider Active Team Status: Inactive Member Role Status Dates Dr. Pilar Carter MD Primary Care Provider Active Dr. Efraín Caballero MD Attending Provider Active Team Status: Inactive Member Role Status Dates Dr. Pilar Carter MD Primary Care Provider Active Dr. Efraín Caballero MD Attending Provider, Referring Prov ider Active Team Status: Active Member Role Status Dates Dr. Pilar Carter MD Primary Care Provider Active Dr. Renate Rodríguez DO Attending Provider Active Team Status: Inactive Member Role Status Dates Dr. Pilar Carter MD Primary Care Provider Active Dr. Renate Rodríguez DO Attending Provider Active Team Status: Inactive Member Role Status Dates Dr. Pilar Carter MD Primary Care Provider Active Genna Wu NP-C Attending Provider, Referring Provi kiet Active Goals (unrecognized section and content) Goals may be documented in a n alternate sectionGoals may be documented in an alternate sectionGoals may be documented in an alternate sectionGoals may be documented in an alternate sectionGoals may be documented in an alternate section No data available for this sectionGoals may be documented in an alternate section INFORMATION SOURCE (unrecogn ized section and content) DATE CREATED AUTHOR 08/05/2023 [facility] DATE CREATED AUTHOR AUTHOR'S ORGANIZ ATION 03/16/2024 [facility] DATE CREATED AUTHOR AUTHOR'S ORGANIZ ATION 12/20/2024 [facility] FOR RECORDS PERTAINING TO PATIENTS WHO ARE OR HAVE BEEN ENROLLED IN A CHEMICAL DEPENDENCY/SUBSTANCEABUSE PROGRAM, SOME INFORMATION MAY BE OMITTED. This clinical summary was aggregated from multiple sources. Caution should be exercised in using it in the provision of clinical care. This summary normalizes information from multiple sources, and as a consequence, information in this document may materially change the coding, format and clinical context of patient data. In addition, data may be omitted in some cases. CLINICAL DECISIONS SHOULD BE BASED ON THE PRIMARY CLINICAL RECORDS. [facility] [employer] [facility]. provides no warranty or guarantee of the accuracy or completeness of information in this document.
== END | disposition home or self-care (01) ==
LOC: OPBI 07:09
PROVIDERS: PCP Family Medicine; Referring Provider Family Medicine; Visit Provider Family Medicine
DX: Z12.31 Encounter for screening mammogram for malignant neoplasm of breast (principal); Z80.3 Family history of malignant neoplasm of breast
CPT/HCPCS: 77063; 77067

== ENCOUNTER → 2025-06-16 | Outpatient (CLI) | payer BC, SELFPAY ==
--- NOTE | 2025-06-16 16:22 | RAD_ITS ---
PROCEDURE: CHEST PA AND LATERAL 06/16/2025 REASON FOR EXAM: HYPERTENSION TECHNIQUE: Procedure Code: RADCXR Modality: DX Procedure: CHEST PA AND LATERAL COMPARISON: Chest x-ray dated 09/26/2019 FINDINGS: Hardware: None Heart: Unremarkable Mediastinum: Unremarkable Lungs: Expanded and clear without evidence of atelectasis, consolidation, effusion, pneumonic infiltrate or pneumothorax. Bones: Unremarkable. No acute findings.. RAD/Chest PA and Lateral IMPRESSION: No acute cardiopulmonary process is identified radiographically. Reading Location: [id number]
[2025-06-16 16:27] LABS: Mucous, Urine 0 SEEN /hpf (<or=2+)
[2025-06-16 17:56] LABS: Color, Urine Straw (Yellow); Glucose, Dipstick Normal (Normal); Ketone-Dipstick Negative (Negative); Leukocyte Esterase-Dipstick Negative /ul (Negative); Nitrite-Dipstick Negative (Negative); Occult Blood-Urine Negative /ul (Negative); Protein-Dipstick Negative (Negative); Specific Gravity, Urine 1.015 (1.002-1.030); Urine Bilirubin Dipstick Negative (Negative)
[2025-06-16 18:09] LABS: AST(SGOT) 20 U/L (<=31); Alanine Aminotransfer ALT/SGPT 24 U/L (<=34); Albumin, Serum 4.2 g/dL (3.5-5.0); Alkaline Phosphatase 82 U/L (35-104); Anion Gap 10 (5-15); BUN 8 mg/dL (4-19); BUN/Creat Ratio 10.8 RATIO (10-20); Calcium,Total 9.6 mg/dL (7.6-11.0); Carbon Dioxide 25.1 mmol/L (21.0-32.0); Chloride 105 mmol/L (98-108); Cholesterol 210 mg/dL (<=200); Globulin 2.9 g/dL (2.2-4.2); Glucose 91 mg/dL (70-99); Low Density Lipoprotein Calc. 116 mg/dL; Magnesium 2.1 mg/dL (1.5-2.2); Potassium 4.0 mmol/L (3.3-5.1); Triglycerides 100 mg/dL; Very Low Density Lipoprotein 20 mg/dL (5-40); cholesterol:hdl ratio screen 2.74
[2025-06-16 18:18] LABS: Hematocrit 40.2 % (37-47); Hemoglobin 13.4 g/dL (12.0-15.0); Immature Granulocytes Count 0.030 X10^3/uL (0.0-0.0); Mean Corp Hgb Conc 33.3 g/dL (32-36); Mean Corpuscular Volume 84.6 fL (81-99); Mean Platelet Vol. 10.1 fl (6.2-12.0); NRBC Flagged by Analyzer 0 % (0-5); Platelet Count 367 K/mm3 (150-450); RBC Distribution Width CV 12.7 % (11.6-14.6); RBC Distribution Width SD 39.7 fl (35.1-43.9); Red Blood Count 4.75 M/mm3 (4.2-5.4); White Blood Count 9.4 K/mm3 (4.4-11.0)
[2025-06-16 18:46] LABS: Red Blood Cells-Urine 0-5 SEEN /hpf (0-5); Squamous Epithelial Cells - UA 5-10 SEEN /hpf (5-10)
== END | disposition home or self-care (01) ==
LOC: MTLAB 16:19
PROVIDERS: PCP Family Medicine; Referring Provider Family Medicine; Visit Provider Family Medicine
DX: I10 Essential (primary) hypertension (principal)
CPT/HCPCS: 36415; 71046; 80053; 80061; 81001; 83735; 84443; 85025

== ENCOUNTER 2025-07-01 12:59 | Outpatient (CLI) | payer BC, SELFPAY ==
--- NOTE | 2025-07-01 13:12 | MRI_ITS ---
PROCEDURE: BRAIN W/WO CONTRAST 07/01/2025 REASON FOR EXAM: HISTORY OF PROLATICNOMA TECHNIQUE: Procedure Code: [id number] Modality: MR Procedure: BRAIN W/WO CONTRAST Multiplanar and multisequence images were obtained. CONTRAST: Clariscan VOLUME: 70 mL COMPARISON: MRI brain October 18, 2022 FINDINGS: Brain: Cholesterol foci of nonenhanced hyperintense signal on T2 and FLAIR in the subcortical white matter of the pre central gyrus of the right frontal lobe, similar to MRI 10/18/2022. No restricted diffusion. No hemorrhage. No mass-effect or midline shift. The orbits are unremarkable. The craniocervical junction is unremarkable. Pituitary gland: Symmetric and unremarkable. No masses. The vertebral is at midline. The optic chiasm is within normal limits. Normal signal void from the internal carotid arteries. Diffusion: No restricted diffusion Ventricles: No ventriculomegaly Major Intracranial Vessels: Patent Sinuses: Clear Mastoids: Clear. Other: MRI/Brain W/WO Contrast IMPRESSION: Unremarkable MRI of the pituitary gland. Stable cluster foci of hyperintense signal on T2 and FLAIR in the subcortical w kobe matter of the paracentral gyrus of the right frontal lobe, nonspecific. This may represent remote vascular insult or small- vessel disease. Reading Location: [id number]
--- NOTE | 2025-07-01 14:18 | US_ITS ---
PROCEDURE: THYROID 07/01/2025 REASON FOR EXAM: NONTOXIC SINGLE THYROID NODULE TECHNIQUE: Procedure Code: USTHY Modality: US Procedure: THYROID COMPARISON: Thyroid ultrasound, 07/25/2022 FINDINGS: Right thyroid lobe size: 5.3 x 1.9 x 1.6 cm (was 5.3 x 2.1 x 1.5 cm). There are no significant nodules identified in the right thyroid lobe. Left thyroid lobe size: 5.3 x 1.9 x 1.3 cm (was 5.6 x 2.1 x 1.4 cm). There are no significant nodules identified in the left thyroid lobe. Isthmus: 2 mm (was 3 mm) Background parenchymal echotexture is mildly heterogeneous. US/Thyroid IMPRESSION: The thyroid gland is enlarged and mildly heterogeneous in echotexture without s ignificant nodules. Reading Location: [place] [id number]
== END 2025-07-01 23:59 | disposition home or self-care (01) ==
PROVIDERS: PCP Family Medicine; Referring Provider Family Medicine; Visit Provider Family Medicine
DX: D35.2 Benign neoplasm of pituitary gland (principal); I10 Essential (primary) hypertension; E04.1 Nontoxic single thyroid nodule
CPT/HCPCS: 70553; 76536; A9575; A4216

== ENCOUNTER → 2025-07-09 | Outpatient (CLI) | payer BC, SELFPAY ==
[2025-07-09 15:56] LABS: Hematocrit 43.5 % (37-47); Hemoglobin 14.7 g/dL (12.0-15.0); Immature Granulocytes Count 0.040 X10^3/uL (0.0-0.0); Mean Corp Hgb Conc 33.8 g/dL (32-36); Mean Corpuscular Volume 83.3 fL (81-99); Mean Platelet Vol. 9.9 fl (6.2-12.0); NRBC Flagged by Analyzer 0 % (0-5); Platelet Count 377 K/mm3 (150-450); RBC Distribution Width CV 11.9 % (11.6-14.6); RBC Distribution Width SD 36.4 fl (35.1-43.9); Red Blood Count 5.22 M/mm3 (4.2-5.4); White Blood Count 10.1 K/mm3 (4.4-11.0)
[2025-07-09 16:11] LABS: AST(SGOT) 29 U/L (<=31); Alanine Aminotransfer ALT/SGPT 37 U/L (<=34); Albumin, Serum 4.7 g/dL (3.5-5.0); Alkaline Phosphatase 87 U/L (35-104); Anion Gap 13 (5-15); BUN 13 mg/dL (4-19); BUN/Creat Ratio 14.8 RATIO (10-20); Calcium,Total 9.9 mg/dL (7.6-11.0); Carbon Dioxide 25.4 mmol/L (21.0-32.0); Chloride 99 mmol/L (98-108); Globulin 2.9 g/dL (2.2-4.2); Glucose 106 mg/dL (70-99); Magnesium 2.1 mg/dL (1.5-2.2); Potassium 3.4 mmol/L (3.3-5.1)
--- OUTSIDE RECORDS SUMMARY | 2025-07-09 18:07 | XMS RPT_ITS | CCD ---
Author Organization [facility] ion Partnership [facility] Care Team Providers Care Data Systems Manager Name Role Phone Pilar Rodríguez MD Primary Care Provider PHYSICIAN, NOT RECORDED Primary Care Physician PILAR Gary Primary Care Unavailable VIV ANGEL Referring Unavailable PILAR RODRÍGUEZ Primary Care Unavailable VIV ANGEL Attending Unavailable VIV ANGEL Attending Unavailable PILAR RODRÍGUEZ Primary Care Unavailable Pilar Carter Attending Unavailable Pilar Carter Referring Unavailable Pilar Carter Primary Care Unavailable Maddison Harris Attending Unavailable Pilar Carter Primary Care Unavailable Maddison Harris Attending Unavailable Pilar Carter Primary Care Unavailable Maddison Harris Attending Unavailable Pilar Carter Primary Care Unavailable Pilar Carter Primary Care Unavailable Maddison Harris Attending Unavailable Maddison Harris Attending Unavailable Pilar Carter Primary Care Unavailable Allergies Allergy Classification Reported Allergen(s) Allergy Type Date of Onset Reaction(s) Facility (8 sources) Minocycline; Translations: [MINOCYCLINE] Drug Allergy 6 Other [facility] Work Phone: (2 sources) Seasonal allergy; Translations: [SEASONAL ALLERGIES] Propensity to adverse reactions 0 [facility] (1 source) Minocycline Drug Allergy 5 [facility] Repository Medications Current Medications Medication Drug Class(es) [...] Comment on above: Take 1 tablet by [facility] twice daily for 10 days. benzonatate 100 mg oral capsule (1 source) Non-narcotic Antitussive Start: 03-31-2022 End: 04-07-2022 take 1 capsule by mouth every eight hours as needed benzonatate (TESSALON PERLE) 100 mg capsule Take 1 capsule by mouth three times daily as needed for up to 7 days. 21 capsule 0 03/31/2022 04/07/2022 Active Comment on above: Take 1 capsule by [facility] three times daily as needed for up [...] Comment on above: Take 1 tablet by [facility] once daily. Vitamin B Complex (6 sources) Start: 10-25-2020 Vitamin B Complex Active 1 EACH PO DAILY October 25, 2020 12:00am Start: 10-25-2020 Vitamin B Comp tom Active 1 EACH PO DAILY October 24, 2020 11:00pm Completed/Discontinued Medications Medication Drug Class(es) Dates Sig (Normalized) Sig (Original) [id number] 200 actuat albuterol 0.09 mg/actuat metered dose [...] [Attention-deficit hyperactivity disorder, predominantly inattentive type] Onset: 04-07-2025 Chronic Other endocrine disorders (1 source) Polycystic ovary syndrome; Translations: [Polycystic ovarian syndrome] Onset: 09-08-2020 09-08-2020 Chronic Other skin disorders (1 source) Localized swelling, [...] Problem Classification Problem Date Documented Date Episodic/Chronic Cancer of cervix (1 source) Low grade [...] , unspecified trimester] Onset: 08-18-2009 08-18-2009 Episodic Other screening for suspected conditions (not mental disorders or infectious disease) (1 source) Encounter for screening mammogram for malignant neoplasm of breast; Translations: [Encounter for screening mammogram for malignant neoplasm of breast] Onset: 12-28-2024 Episodic Results Test Name Value Interpretation Reference Range Facility [facility] 06-03-[address], [address] [place] [address] OFFICE VISIT Date of Service: 06/03/25 MR#: [id number] Acct: [id number] Name: CARSON STALLINGS Rep #: [id number] : 1985 Provider: PRESTON ruano Age/Sex: 40/F Location: [facility].BP Status: Signed Intake Vital Signs 04/07/25 07:29 06/03/25 07:02 Height 5 ft 7 in 5 ft 7 in Weight: 193 lb 191 lb BMI 30.2 29.9 BP 149/96 H 153/88 H Blood Pressure Location Lt brachial Lt brachial Position Sitting Sitting Respiration 16 16 Pulse 96 84 Pulse Source Monitor Monitor BP Intake Visit Reasons: 8wfu Accompanied by: Self Allergies minocycline Allergy (Verified 06/03/25 07:09) Other Medications ???Medication ???Instructions ???Recorded ???Confirmed ???Type albuterol sulfate 90 mcg/actuation 1 puff inhalation Q4H PRN PRN 06/03/25 History aerosol inhaler exercise induced asthma multivitamin 1 tab PO DAILY 01/15/24 06/03/25 H istory magnesium 200 mg tablet 200 mg PO QDAY 04/07/25 06/03/25 H istory PFSH Medical History Tonsillectomy planned delivery delivered [...] by: patient HPI: Ravin Stallings is a 40 year old female patient presenting today for a follow up evaluation. Does present today with continued increased BP and does report a family history of hypertension. Denies recent feelings of depression. Denies SI/HI. Admits to some increase in anxiety with current work stress. Denies panic attacks. Sleep has not been good recently. Appetite has been good overall. Previous similar episode: Yes Age of first [...] or erythema Neurological Denies: headache(s) Psychiatric Reports: anxiety; Denies: mood swings, panic attacks, change in sleep pattern, hopelessness, loss of interest, irritability, paranoia, memory loss, difficulty concentrating, visual hallucinations, auditory hallucinations, suicidal ideation or homicidal ideation Endocrine Denies: fatigue Hematologic/Lymphati c Denies: easy bruising Allergic/Immunologic Denies: wheezing Exam [...] Suicidal Ideation none Homicidal Ideation none Attention intact Concentration intact Sensorium/Orientatio n awake, alert and oriented x3 Memory/Cognition intact Insight good Judgement good Exam Constitutional Common normals: no acute distress, average body habitus and patient oriented x3 Neuro Common normals: patient oriented x3 Speech: speech normal Gait (neuro): normal gait Psych Psychiatry clinicians, please identify where your Mental Status Exam is documented: Mental Status Exam documented in the separate MSE Assessment Plan Assessment Plan (1) ADHD (attention deficit hyperactivity disorder), inattentive type: Plan: - Discontinue Adderall at t (more content not included)... Normal [facility] MR/BMS.BPon 04-07-2025 MR/BMS.BP [facility] [address] [facility], [address] [place] [address] OFFICE VISIT Date of Service: 04/07/25 MR#: [id number] Acct: [id number] Name: CARSON STALLINGS Rep #: [id number] : 1985 Provider: PRESTON ruano Age/Sex: 40/F Location: [facility].BP Status: Signed Intake Vital Signs 02/17/25 07:29 04/07/25 07:29 Height 5 ft 7 in 5 ft 7 in Weight: 193 lb 193 lb BMI 30.2 30.2 BP 145/93 H 149/96 H Blood Pressure Location Lt brachial Lt brachial Position Sitting Sitting Respiration 16 16 Pulse 81 96 Pulse Source Monitor Monitor BP Intake Visit Reasons: 8wfu Accompanied by: Self Allergies minocycline Allergy (Verified 04/07/25 07:34) Other Medications ???Medication ???Instructions ???Recorded ???Confirmed ???Type albuterol sulfate 90 mcg/actuation 1 puff inhalation Q4H PRN PRN 04/07/25 History aerosol inhaler exercise induced asthma multivitamin 1 tab PO DAILY 01/15/24 04/07/25 H istory dextroamphetamine-am phetamine 5 mg 5 mg PO QDAY 30 days #30 tabs 04/07/25 Rx tablet dextroamphetamine-am phetamine 5 mg 5 mg PO QDAY 30 days #30 tabs 04/07/25 Rx tablet dextroamphetamine-am phetamine ER 25 mg PO QAM 30 days #30 caps 03/2304/07/25 Rx 25 mg 24hr capsule,extend release (Adderall XR) dextroamphetamine-am phetamine ER 25 mg PO QAM 30 days #30 caps 03/2304/07/25 Rx 25 mg 24hr capsule,extend release (Adderall XR) magnesium 200 mg tablet 200 mg PO QDAY 04/07/25 04/07/25 H istory PFSH Medical History Tonsillectomy planned delivery delivered [...] by: patient HPI: Ravin Stallings is a 40 year old female patient presenting today for a follow up evaluation. 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 Reports she has noticed a positive difference in increased Adderall dose. Sleep has been good. Most nights is getting good quality sleep. Denies changes in appetite. No changes in weight. Denies recent feelings of depression. Denies SI/HI. Denies anxiety. Previous similar episode: Yes Age of [...] pruritus or erythema Neurological Denies: headache(s) Psychiatric Denies: anxiety, mood swings, panic attacks, change in sleep pattern, hopelessness, loss of interest, irritability, paranoia, memory loss, difficulty concentrating, visual hallucinations, auditory hallucinations, suicidal ideation or homicidal ideation Endocrine Denies: fatigue Hematologic/Lymphati c Denies: easy bruising Allergic/Immunologic Denies: wheezing Exam [...] Suicidal Ideation none Homicidal Ideation none Attention intact Concentration intact Sensorium/Orientatio n awake, alert and oriented x3 Memory/Cognit (more content not included)... Normal [facility] MR/BMS.BPon 02-17-2025 MR/BMS.BP [facility] [address] [facility], [address] [place] [id number] OFFICE VISIT Date of Service: 02/17/25 MR#: [id number] Acct: [id number] Name: CARSON STALLINGS Rep #: [id number] : 1985 Provider: PRESTON ruano Age/Sex: 40/F Location: [facility].BP Status: Signed Intake Vital Signs 11/18/24 07:35 02/17/25 07:29 Height 5 ft 7 in 5 ft 7 in Weight: 193 lb BMI 30.2 BP 139/91 H 145/93 H Blood Pressure Location Lt brachial Lt brachial Position Sitting Sitting Respiration 16 16 Pulse 87 81 Pulse Source Monitor Monitor BP Intake Visit Reasons: 3 M FU Accompanied by: Self Allergies minocycline Allergy (Verified 02/17/25 07:31) Other Medications ???Medication ???Instructions ???Recorded ???Confirmed ???Type albuterol sulfate 90 mcg/actuation 1 puff inhalation Q4H PRN PRN 02/17/25 History aerosol inhaler exercise induced asthma multivitamin 1 tab PO DAILY 01/15/24 02/17/25 H istory dextroamphetamine-am phetamine 5 mg 1 tab PO QDAY 30 days #30 tabs 0 02/17/25 02/17/25 Rx tablet dextroamphetamine-am phetamine 5 mg 5 mg PO QDAY 30 days #30 tabs 02/17/25 Rx tablet dextroamphetamine-am phetamine ER 25 mg PO QAM 30 days #30 caps 01/2102/17/25 Rx 25 mg 24hr capsule,extend release (Adderall XR) dextroamphetamine-am phetamine ER 25 mg PO QAM 30 days #30 caps 01/2102/17/25 Rx 25 mg 24hr capsule,extend release (Adderall XR) PFSH [...] by: patient HPI: Ravin Stallings is a 40 year old female patient presenting today for a follow up evaluation. Recently returned from a [place] vacations, [place] one in [place], and to a few [employer] in [place]. Overall has been doing well. Has been struggling more with focus at work recently and has been more easily distracted on tasks. Denies recent feelings of depression. Denies SI/HI. Reports some mild feelings of anxiety. Does feel she is able to manage anxiety well. Feels when she is wandering on her tasks she is able to bring herself back but it takes time for this. Reports she has been sleeping well and has continued to take Mg at bedtime. 7 hours per night and feels well rested. Appetite has been good. Has lost 5 pounds since last appointment. Previous similar episode: Yes Age of first [...] or erythema Neurological Denies: headache(s) Psychiatric Reports: irritability and difficulty concentrating; Denies: anxiety, mood swings, panic attacks, change in sleep pattern, hopelessness, loss of interest, paranoia, memory loss, visual hallucinations, auditory hallucinations, suicidal ideation or homicidal ideation Endocrine Denies: fatigue Hematologic/Lymphati c Denies: easy bruising Allergic/Immunologic Denies: wheezing Exam Mental Status Exam - Psych Appearance casually dressed, adequately groomed and no apparent distress Attitude cooperative and calm Activity/Motor Behavior MSE activity/motor behavior finding no adventitious movements and appropriate eye contact Speech regular rate, regular volume and regular prosody Mood euythmic Affect full range Thought Process linear, logical and coherent Thought Content no (more content not included)... Normal [facility] SCRN MAMM (CAD)W/JAMES BILATo n 12-23-2024 SCRN MAMM (CAD)W/JAMES BILAT [facility] Imaging Services [address] [place] [address] [id number] SCRN MAMM (CAD)W/JAMES BILAT MR#: [id number] Acct: [id number] Name: CARSON STALLINGS Rep #: [id number] : 1985 F 39 From: Carmen Marshall i, MD PCP: Dr. Pilar Carter MD Status: [facility] Study: SCRN MAMM (CAD)W/JAMES BILAT Date of Exam: 10/14 Exam# [id number] Ordering Dr: Pilar Carter MD EXAM: SCRN MAMM (CAD)W/JAMES BILAT DATE: 12/23/2024 CLINICAL HISTORY: F, Age 39 y/o , FAMILY HISTORY OF BREAST CANCER BREAST CANCER RISK ASSESSMENT: Na TECHNIQUE: Bilateral screening digital breast tomosynthesis with 2D and 3D images. Computer aided detection. COMPARISON: Prior exam(s) were compared FINDINGS: TISSUE DENSITY: The breast tissue is heterogenously dense, which may obscure small masses. Bilateral Breast Mammographic Findings: No suspicious masses, calcifications or other abnormalities are identified. BI/SCRN MAMM (CAD)W/JAMES BILAT IMPRESSION: OVERALL FINAL ASSESSMENT: BIRADS 1 NEGATIVE RECOMMENDATION: Routine annual follow-up in 1 Year A letter with findings and recommendations will be mailed to the patient. Reading Location: [facility] CC: Dr. Pilar Carter MD Youth Care Specialist: Signed Normal [facility] MR/BMS.BPon 11-18-2024 MR/BMS.BP [address], [address] [place] [address] OFFICE VISIT Date of Service: 11/18/24 MR#: [id number] Acct: [id number] Name: CARSON STALLINGS Rep #: [id number] : 1985 Provider: PRESTON ruano Age/Sex: 39/F Location: [facility].BP Status: Signed Intake Vital Signs 10/21/24 07:32 [...] tab PO DAILY 01/15/24 11/18/24 H istory dextroamphetamine-am phetamine 5 mg 5 mg PO QDAY 30 days #30 tabs 11/18/24 Rx tablet dextroamphetamine-am phetamine 5 mg 5 mg PO QDAY 30 days #30 tabs 11/18/24 Rx tablet dextroamphetamine-am phetamine 5 mg 5 mg PO QDAY 30 days #30 tabs 11/18/24 Rx tablet dextroamphetamine-am phetamine ER 20 mg PO QAM 30 days #30 caps 0404/1611/18/24 Rx 20 mg 24hr capsule,extend release dextroamphetamine-am phetamine ER 20 mg PO QAM 30 days #30 caps 0404/1611/18/24 Rx 20 mg 24hr capsule,extend release dextroamphetamine-am phetamine ER 20 mg PO QAM 30 days #30 caps 0404/1611/18/24 Rx 20 mg 24hr capsule,extend release PFSH [...] ideation or homicidal ideation Endocrine Denies: fatigue Hematologic/Lymphati c Denies: easy bruising Allergic/Immunologic Denies: wheezing Exa (more content not included)... Normal [facility] MR/BMS.BPon 10-21-2024 MR/BMS.BP [facility] [address] [facility], [address] [place] [address] OFFICE VISIT Date of Service: 10/21/24 MR#: [id number] Acct: [id number] Name: CARSON STALLINGS Rep #: [id number] : 1985 Provider: PRESTON ruano Age/Sex: 39/F Location: [facility].BP Status: Signed Intake Vital Signs 05/21/24 08:29 [...] tab PO DAILY 01/15/24 10/21/24 H istory dextroamphetamine-am phetamine 5 mg 5 mg PO QDAY 30 days #30 tabs 10/21/24 Rx tablet dextroamphetamine-am phetamine ER 20 mg PO QAM 30 days #30 caps /08/1610/21/24 Rx 20 mg 24hr capsule,extend release PFSH [...] ideation or homicidal ideation Endocrine Reports: fatigue Hematologic/Lymphati c Denies: easy bruising Allergic/Immunologic Denies: wheezing Exam Mental Status Exam - Psych Appearance casually dressed, adequately groomed and no apparent distress Attitude cooperative and calm Activity/Motor Behavior MSE activity/motor behavior finding no adventitious movements and appropriate eye contact Speech regular rate, regular volume and regula (more content not included)... Normal [facility] CNCOon 03-14-2024 CNCO Letter Text Normal [facility] CNOVon 08-01-2023 CNOV Office Visit (PLAFVW) CARSON STALLINGS ([id number]) 1985 F Date Time Provider Department 08/01/23 3:45 PM VIV ANGEL PLAFVW During your visit today, we recorded the following information about you: Viv Angel MD 08/03/2023 10:34 AM Signed Carson Stallings underwent volar hand mass excision [...] Past Histories independently gathered by the clinical ground crewman aircraft support and the remaining scribed note accurately describes [...] Op [174] Cmt: Sx: 07/19/2023 Primary Visit Diagnosis:Postoperat jt state [Z98.890] Prescriptions as of 08/03/2023 - [...] Encounter Status:Closed by VIV ANGEL on 08/03/23 [facility] OPERATIVE NOon 07-19-2023 OPERATIVE NO HNO ID: [id number] Author: Viv Angel MD Service: Hand Surgery Author Type: Physician Type: Operative Report Filed: 07/20/2023 12:01 PM Note Text: OPERATIVE/PROCEDURE REPORT LOG ID: [id number] SURGERY/PROCEDURE DATE: 07/19/2023 INCISION/PROCEDURE START TIME: 12:24 PM INCISION CLOSE/PROCEDURE END TIME: 12:40 PM SURGEON(S)/PROCEDURA LIST(S) AND SURGICAL SUPERVISOR(S): Surgeon(s) and Role: * Viv Angel MD - Primary * Samuel Yi MD - Resident - Assisting No Additional Staff SURGERY/PROCEDURE(S) : 1) Left volar hand mass excision CPT 24973 2) Release of left long finger A1 zamzam CPT 38084 ANESTHESIA: Local INDICATIONS: This is a 38 [...] mass 2) Left long finger flexor synovitis POST-OP/POST-PROCEDU RE DIAGNOSIS: Same as Preop COUNTS: Instrument, sponge, and needle counts were correct at the end of the procedure ESTIMATED BLOOD LOSS: 0 ml SPECIMENS: ID Type Source Tests Collected by Time Destination A : Tissue SKIN EXCISED CYST SURGICAL PATHOLOGY Viv Angel MD 07/19/2023 12:36 PM IMPLANTABLE DEVICES: * No implants in log * DRAINS: None COMPLICATIONS: None PARTICIPATION IN SURGERY/PROCEDURE: I/primary surgeon/proceduralis t performed the procedure with assistance. SIGNATURE: Viv Angel MD PATIENT NAME: Carson Stallings DATE: July 20, 2023 TIME: 11:55 AM Normal [facility] SURGICAL PATHOLOGYon 023 CASE REPORT Normal [facility] Comment on above: Order Comment: Bess barrera Type: TISSUE SPECIMEN Ordering Facility: [facility] Address: [address] [place] [address] Result Comment: Surg ica Pathology Report Case: [id number] Authorizing Provider: Viv Angel MD Collected: 07/19/2023 12:36 PM [facility] Received: 07/19/2023 07:02 PM Pathologist: Srinivasan Schmitt MD Specimen: SKIN EXCISED CYST Performed By: #### S #### [facility] CLIA [id number] [address] [place] [address] [place] CLINICAL HISTORY Normal [facility] Comment on above: Order Comment: Bess barrera Type: TISSUE SPECIMEN Ordering Facility: [facility] Address: [address] [place] [address] Result Comment: Pre- op diagnosis: Mass of finger of left hand [R22.32] Performed By: #### S #### [facility] CLIA [id number] [place] FINAL DIAGNOSIS Normal [facility] Comment on above: Order Comment: Speci men Type: TISSUE SPECIMEN Ordering Facility: [facility] Address: [address] [place] [address] Result Comment: Antony chavarria, finger of left hand, excision: - Ganglion cyst. SDB/CP/mm/07/24/2023 Performed By: #### S #### [facility] CLIA [id number] [address] [place] [address] [place] FINAL PERFORMING LAB Normal [facility] Comment on above: Order Comment: Speci men Type: TISSUE SPECIMEN Ordering Facility: [facility] Address: [address] [place] [address] Result Comment: Diag nostic interpretation performed at [facility], [address] [place] [address] CLIA# [id number] Material Loader: José Manuel Schaffer M.D. Performed By: #### S #### [facility] CLIA [id number] [address] [place] [address] [place] GROSS DESCRIPTION Normal [facility] Comment on above: Order Comment: Speci men Type: TISSUE SPECIMEN Ordering Facility: [facility] Address: [address] [place] [address] Result Comment: Antony CHAVARRIA EXCISED CYST Received in formalin, labeled skin [...] 2023 8:13 AM Gross examination performed at [facility], [address] [place] [address] Performed By: #### S #### [facility] CLIA [id number] [address] [place] [address] [place] CNOVon 07-04-2023 CNOV Office Visit (PLAFVW) CARSON STALLINGS ([id number]) 1985 F Date Time Provider Department 07/04/23 9:00 AM VIV ANGEL PLAFVW During your visit today, we recorded the following information about you: Viv Angel MD 07/04/2023 2:54 PM Signed [facility] Hand AND Upper Extremity Surgery New Patient [...] 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 PAST MEDICAL HISTORY Diagnosis Date - [...] not taking: Reported on 07/04/2023) No current facility-administere d medications for this visit. ALLERGIES Allergen Reactions [...] hand [R22.32] Order(s):SURGICAL REQUEST - ELECTIVE (02/2020) [[id number]] Order #: [id number]: 1 Prescriptions as of 07/04/2023 - buPROPion [...] Encounter Status:Closed by VIV ANGEL on 07/04/23 [facility] XR HAND 3V PA/LAT/OBL LTon 1 [...] maintained. No bony erosions. IMPRESSION: Normal radiographs. Youth Care Specialist: PSCB Transcribe Date/Time: Jul 05 2023 4:37P Dictated by : RADHA CHRISTIANSON MD This examination was interpreted and the report reviewed and electronically signed by: RADHA CHRISTIANSON MD on Jul 05 2023 4:38PM EST [id number] CN [facility] Basophil percentageOrdered B y: Dr. Rodríguez on 10-23-2022 Chloride [Moles/Vol] 105 mmol/L 98-[address] [facility] Glucose [Mass/Vol] 90 mg/dL 74-106 [facility] Potassium [Moles/Vol] 3.9 mmol/L 3.5-5.1 [facility] Sodium [Moles/Vol] 137 mmol/L 136-145 [facility] - Chemistry and C hemistry - challengeOrdered By: Dr. Rodríguez on 10-23-2022 CO2 [Moles/Vol] 28.0 mmol/L 21.0-32.0 [facility] Free T4 [Mass/Vol] 0.84 ng/dL 0.76-1.46 [facility] Urea nitrogen/Creatinine [Mass ratio] 17.6 mg/mg 10-20 [facility] No Panel InformationOrdered By: Dr. Rodríguez on 10-23-2022 Estimated GFR (MDRD) Amer 89 mL/min >60 [facility] Comment on above: GFR Calc Estimated GFR (MDRD) Non-Af Amer 74 mL/min >60 [facility] Comment on above: Non- GFR Calc Thyroid Stimulating Hormone (TSH) 0.89 uIU/mL 0.358-3.74 [facility] Serum or plasma calcium hope urement (mass/volume)Ordered By: Dr. Rodríguez on 10-23-2022 Calcium [Mass/Vol] 9.9 mg/dL 8.5-10.1 [facility] Serum or plasma creatinine m easurement (mass/volume)Ordered By: Dr. Rodríguez on 10-23-2022 Creatinine [Mass/Vol] 0.91 mg/dL 0.55-1.02 [facility] Comment on above: The validity of the calculated GFR & GFRAA in patients over 70 years has not been determined. Clinical correlation is essential. Serum or plasma urea nitroge n measurement (mass/volume)Ordered By: Dr. Rodríguez on 10-23-2022 Urea nitrogen [Mass/Vol] 16 mg/dL 7-18 [facility] Thin prep Papanicolaou smear with manual screeningOrdered By: Dr. Rodríguez on 10-23-2022 Thin prep Papanicolaou smear with manual screening 4 5-15 [facility] Basophil percentageOrdered B y: Dr. Caballero on 09-29-2022 Bilirubin [Mass/Vol] 0.80 mg/dL 0.20-1.00 [facility] Comment on above: For patients on eltr ombopag therapy, use of Dimension Melvin TBIL is not recommended. Chloride [Moles/Vol] 104 mmol/L 98-107 [facility] Glucose [Mass/Vol] 92 mg/dL 74-106 [facility] Potassium [Moles/Vol] 4.2 mmol/L 3.5-5.1 [facility] Protein [Mass/Vol] 7.6 g/dL 6.4-8.2 [facility] Sodium [Moles/Vol] 138 mmol/L 136-145 [facility] WBC (Bld) [#/Vol] 6.9 10*3/uL 4.4-11.0 [facility] Blood erythrocytes count (nu mber/volume)Ordered By: Dr. Caballero on 09-29-2022 RBC (Bld) [#/Vol] 4.83 10*6/uL 4.2-5.4 [facility] Blood hemoglobin measurement (mass/volume)Ordered By: Dr. Caballero on 09-29-2022 Hemoglobin (Bld) [Mass/Vol] 13.8 g/dL 12.0-15.0 [facility] Blood platelet mean volumeOr dered By: Dr. Caballero on 09-29-2022 Platelet mean volume (Bld) [Entitic vol] 9.8 fL 6.2-12.0 [facility] Determination of erythrocyte mean corpuscular volume (MCV)Ordered By: Dr. Caballero on 09-29-2022 MCV (RBC) [Entitic vol] 85.7 fL 81-99 [facility] Hematocrit Auto (Bld) [Volum e fraction]Ordered By: Dr. Caballero on 09-29-2022 Hematocrit (Bld) [Volume fraction] 41.4 % 37-47 [facility] Laboratory - Chemistry and C hemistry - challengeOrdered By: Dr. Caballero on 09-29-2022 ALP [Catalytic activity/Vol] 83 U/L 45-117 [facility] ALT [Catalytic activity/Vol] 29 U/L 13-56 [facility] CO2 [Moles/Vol] 26.0 mmol/L 21.0-32.0 [facility] Free T4 [Mass/Vol] 0.85 ng/dL 0.76-1.46 [facility] Globulin (S) [Mass/Vol] 3.8 g/dL 2.2-4.2 [facility] Urea nitrogen/Creatinine [Mass ratio] 17.4 mg/mg 10-20 [facility] Laboratory - Hematology and Cell countsOrdered By: Dr. Caballero on 09-29-2022 Erythrocyte distribution width (RBC) [Entitic vol] 38.2 fL 35.1-43.9 [facility] Erythrocyte distribution width (RBC) [Ratio] 12.1 % 11.6-14.6 [facility] MCH (RBC) [Entitic mass] 28.6 pg 27.0-32.0 [facility] MCHC Auto (RBC) [Mass/Vol]Or dered By: Dr. Caballero on 09-29-2022 MCHC (RBC) [Mass/Vol] 33.3 g/dL 32-36 [facility] No Panel InformationOrdered By: Dr. Caballero on 09-29-2022 Anti-Nuclear Antibody Screen Negative Negative [facility] Comment on above: Performed at: [employer] [address] Director: Laci Null PhD, Phone: [phone] Estimated GFR (MDRD) Amer 95 mL/min >60 [facility] Comment on above: GFR Calc Estimated GFR (MDRD) Non-Af Amer 79 mL/min >60 [facility] Comment on above: Non- GFR Calc Thyroid Stimulating Hormone (TSH) 0.89 uIU/mL 0.358-3.74 [facility] Platelets bldOrdered By: Dr. Caballero on 09-29-2022 Platelets (Bld) [#/Vol] 341 10*3/uL 150-450 [facility] Serum or plasma C reactive p rotein measurement (mass/volume)Ordered By: Dr. Caballero on 09-29-2022 CRP [Mass/Vol] 4.14 mg/L 0.0-3.0 [facility] Comment on above: C-Reactive Protein ( CRP) provides useful information for thediagnosis, therapy and monitoring of inflammatory processesand associated diseases. For the evaluation of Relative Riskfor Cardiovascular Disease, a High Sensitivity CRP (HSCRP)should be ordered. Serum or plasma albumin hope urement (mass/volume)Ordered By: Dr. Caballero on 09-29-2022 Albumin [Mass/Vol] 3.8 g/dL 3.2-5.0 [facility] Serum or plasma albumin/glob ulin mass ratioOrdered By: Dr. Caballero on 09-29-2022 Albumin/Globulin [Mass ratio] 1.0 {ratio} 0.9-2.4 [facility] Serum or plasma calcium hope urement (mass/volume)Ordered By: Dr. Caballero on 09-29-2022 Calcium [Mass/Vol] 9.5 mg/dL 8.5-10.1 [facility] Serum or plasma creatinine m easurement (mass/volume)Ordered By: Dr. Caballero on 09-29-2022 Creatinine [Mass/Vol] 0.86 mg/dL 0.55-1.02 [facility] Comment on above: The validity of the calculated GFR & GFRAA in patients over 70 years has not been determined. Clinical correlation is essential. Serum or plasma prolactin me asurement (mass/volume)Ordered By: Dr. Caballero on 09-29-2022 Prolactin [Mass/Vol] 4.3 ng/mL [facility] Comment on above: NORMAL REFERENCE RAN GES FEMALE NON- 2.2 - 30.3 ng/mL 8.1 - 347.6 ng/mL POST-MENOPAUSAL 0.7 - 31.5 ng/mL MALE 2.5 - 17.4 ng/mL Serum or plasma urea nitroge n measurement (mass/volume)Ordered By: Dr. Caballero on 09-29-2022 Urea nitrogen [Mass/Vol] 15 mg/dL 7-18 [facility] Thin prep Papanicolaou smear with manual screeningOrdered By: Dr. Caballero on 09-29-2022 Thin prep Papanicolaou smear with manual screening 20 U/L 15-37 [facility] Thin prep Papanicolaou smear with manual screening 8 5-15 [facility] Whole blood hemoglobin A1c/t otal hemoglobin ratio (mass fraction)Ordered By: Dr. Caballero on 09-29-2022 HbA1c (Bld) [Mass fraction] 5.0 % 3.8-5.6 [facility] Comment on above: Normal < 5.7 % Predi abetic 5.7 - 6.4 % Diabetic >or= 6.5 % Please note range changes. Vital Signs Date Time Vital Sign Value Performing Clinician Arjun jensen 03-09-2023 19:15-0400 Diastolic Blood Pressure Non-Invasive [address] ATA ZHAO MD [facility] 03-09-2023 19:15-0400 Heart rate 76 /min DR ATA ZHAO MD [facility] 03-09-2023 19:15-0400 Respiratory rate 16 /min DR ATA ZHAO MD [facility] 03-09-2023 19:15-0400 Systolic Blood Pressure Non-Invasive [address] ATA ZHAO MD [facility] 03-09-2023 18:14-0400 Body temperature 98.06 [degF] DR ATA ZHAO MD [facility] 03-09-2023 18:14-0400 Diastolic Blood Pressure Non-Invasive [address] ATA ZHAO MD [facility] 03-09-2023 18:14-0400 Heart rate 78 /min DR ATA ZHAO MD [facility] 03-09-2023 18:14-0400 Respiratory rate 16 /min DR ATA ZHAO MD [facility] 03-09-2023 18:14-0400 Systolic Blood Pressure Non-Invasive [address] ATA ZHAO MD [facility] Encounters Encounter Date Encounter Type Care Provider Facility Start: 06-03-2025 End: 06-03-2025 ambulatory Pilar Carter Facility:[facility] Start: 04-07-2025 End: 04-07-2025 ambulatory Maddison Harris Facility:[facility] Start: 02-17-2025 End: 02-17-2025 ambulatory Maddison Harris Facility:[facility] Start: 12-23-2024 End: 12-23-2024 ambulatory Pilar Carter Facility:[facility] Start: 11-18-2024 End: 11-18-2024 ambulatory Bell Facility:[facility] Start: 10-21-2024 End: 10-21-2024 ambulatory [facility] Facility:[facility] Start: 11-20-2023 End: 11-20-2023 ambulatory [facility] Work Phone: Start: 11-20-2023 End: 11-20-2023 Patient encounter procedure [facility]-Outpatient Breast Imaging Work Phone: Start: 08-01-2023 End: 08-02-2023 ambulatory VIV ANGEL Facility:[facility] Start: 07-04-2023 End: 07-04-2023 ambulatory PILAR Clementina MARCOS Facility:[facility] Start: 03-09-2023 End: 03-09-2023 Emergency department patient visit DR ATA ZHAO MD [facility] Start: 10-31-2022 End: 10-31-2022 ambulatory [facility] Work Phone: Start: 10-31-2022 End: 10-31-2022 Patient encounter procedure [facility]-Outpatient Breast Imaging Start: 10-23-2022 End: 10-23-2022 ambulatory [facility] Work Phone: Start: 10-23-2022 End: 10-23-2022 Patient encounter procedure [facility]-Laboratory, [place] 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 Start: 10-18-2022 End: 10-18-2022 ambulatory [facility] Work Phone: Start: 10-18-2022 End: 10-18-2022 Patient encounter procedure [facility]-MRI - [facility] Start: 09-29-2022 End: 09-29-2022 ambulatory [facility] Work Phone: Start: 09-29-2022 End: 09-29-2022 Patient encounter procedure [facility]-Laboratory Start: 07-25-2022 End: 07-25-2022 ambulatory [facility] Work Phone: Start: 07-25-2022 End: 07-25-2022 Patient encounter procedure [facility]-Ultrasound, [facility] Start: 04-04-2022 Orders Only Terence [email or web address].[email or web address] Work Phone: [facility] Procedures Date Procedure Procedure Detail Performing Clinician Start: 11-20-2023 Screening mammography Start: 10-31-2022 Screening mammography Start: 10-18-2022 MRI of brain without contrast Start: 07-25-2022 US scan of thyroid Plan of Treatment Date Care Activity Detail Author Start: 03-23-2022 Influenza vaccination INFLUENZA (#1) [facility] Start: 2015 HPV TESTING HPV TESTING [facility] Start: 12-13-2011 PAP TESTING PAP TESTING [facility] Start: 01-22-2004 Urine microalbumin profile DTAP,TDAP ,TD (1 - Tdap) [facility] Start: 2003 HEPATITIS C SCREENING HEPATITIS C SC REENING [facility] Start: 2003 HIV SCREENING HIV SCREENING [facility] Start: 1997 Adult depression scr [facility] assessment DEPRESSION SCREENING [facility] Start: 1985 COVID-19 VACCINE (#1) COVID-19 VACCI NE (#1) [facility] Start: 1985 HEPATITIS B (1 of 3 - 3-dose series) HEPATITIS B (1 of 3 - 3-dose series) [facility] Payers Date Payer Category Payer Self-pay [id number] 2022 Unknown [id number] 2020 Unknown [employer] PPO [id number] 2020-Present [phone] [address] [place] [address] PPO [id number] [id number] Unknown [facility] [id number] Unknown [facility] [id number] Unknown [id number] 62 Unknown [id number] 62 Unknown [id number] 62 Unknown [id number] 62 Unknown [id number] 62 Unknown [id number] Social History Date Type Detail Facility Start: 06-04-2020 Tobacco smoking stat us LAIS Ex-smoker [facility] Work Phone: End: 04-06-2009 History of tobacco use Current smoker [facility] Work Phone: End: 04-06-2009 History of tobacco use Cigarette Smoker [facility] Work Phone: Start: 06-04-2020 Cigarettes smoked current (pack per day) - Reported 0.5 [facility] Start: 06-04-2020 Tobacco use and exposure Smokeless tobacco non-user [facility] Work Phone: Start: 03-08-2022 Alcohol intake Current drinke r of alcohol (finding) [facility] Start: 08-03-2009 History SDOH Alcohol Comment occasional, NOT WHILE [facility] Start: 1985 Sex Assigned At Female C [facility] Start: 10-25-2020 End: 10-25-2020 Tobacco smoking status LAIS Unknown if ever smoked [facility] Tobacco smoking status No Smokin g Status Entered [facility] Functional Status Date Assessment Result Facility 03-09-2023 Functional Status Standard Safet y ID band on, Call device within reach, Bed in low position, Wheels locked, Upper/Half-Length side-rails up, Bedside Cart Locked, Safety level maintained [facility] Mental Status Date Assessment Result Facility 03-09-2023 Mental Status Orientation Oriented x 4 [facility] Progress note 08-01-2023 Note Date & Type Note Facility 08-01-2023 Note HNO ID: [id number] Author: VIV ANGEL MD Service: ? Author [...] Past Histories independently gathered by the clinical ground crewman aircraft support and the remaining scribed note accurately describes my personal service to the patient. Viv Angel MD Hand AND Upper Extremity Surgery This note was generated with voice recognition software and may contain errors, including spelling, grammar, syntax and misrecognition of what was dictated, that are not fully corrected. [facility] Progress note 07-04-2023 Note Date & Type Note Facility 07-04-2023 Note HNO ID: [id number] Author: Viv Angel MD Service: ? 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 PAST MEDICAL HISTORY Diagnosis Date - [...] Angel MD July 04, 2023 2:50 PM [facility] Progress note 07-04-2023 Note Date & Type Note Facility 07-04-2023 Note HNO ID: [id number] Author: Mary Hudson RT(Lionel) Service: ? Author Type: Technologist Type: Progress [...] PERIPHERAL IV DATA: Not applicable SIGNED BY: RT Lawson(R) July 04, 2023 8:10 AM [facility] Discharge instructions 03-09-2023 Note Date & Type [...] products Chemicals or dyes in clothing, linen, switching operator, hair dyes, soaps, iodine Many viruses [...] damage the skin. Oral diphenhydramine is an yclj-tbj-gvnfyqv antihistamine sold at pharmacy and grocery stores. [...] hours, or as directed by your provider [phone] [employer]. [address] [place] [address]. All rights reserved. This information is not intended as a substitute for professional medical care. Always follow your healthcare professional's instructions. Follow Up Care 03/09/2023 18:09:09 With:MICHELLE TRAY Address: [address] [address] [phone] Business (1) When:2-4 days With:Follow up with primary care provider Address:Unknown When:2-4 days Comments:Take prednisone as prescribed. You may take Benadryl or Zyrtec as well. Follow-up with your doctor or if you do not have a doctor you may follow-up with Dr. Bass. Return if any worsening or concerning symptoms. [facility] Emergency department Discharge summary 03-09-2023 Note Date & Type Note Facility 03-09-2023 Emergency department Discharge summary Discharge Instructions Thank you for allowing [facility] to assist you with your healthcare needs. The following is important discharge information regarding your hospital visit. Diagnosis from Today's Visit Allergic reaction Allergic reaction What to Do Next Instructions from Your Care Team No qualifying data available. Post Acute Orders No qualifying data available. You Need to Schedule the Following Appointments Follow Up with MICHELLE BASS When Within 2-4 days Where: [address] [place] [address]- [phone] Business (1) Follow Up with Follow up [...] products Chemicals or dyes in clothing, linen, switching operator, hair dyes, soaps, iodine Many viruses [...] damage the skin. Oral diphenhydramine is an ijqk-ite-boejeac antihistamine sold at pharmacy and grocery stores. [...] hours, or as directed by your provider [phone] [employer] [address] [place] [address], [place] [address]. All rights reserved. This information is not intended as a substitute for professional medical care. Always follow your healthcare professional's instructions. Additional Information VACCINATE! IT SAVES LIVES! Members of the community who have not yet received the COVID-19 vaccine and would like to receive it can visit one of [facility] vaccine clinics. There are many vaccine clinic locations within the [facility]. For locations and available times, please visit [email or web address] [email or web address] It is important to note that some COVID mobile vaccine clinics are held outdoors and may be canceled in rainy or stormy conditions. To learn more about pediatric vaccinations (ages 5-11), we invite you to visit the [facility] webpage. https://www.Viratechs.org/pa ges/2723-Mwxsb-Ytvkyfgppwz-Freque kuoe-Ulydw-Fssnjegou.html To learn more about the COVID-19 vaccine, we invite you to visit the CDC website for a list of frequently asked questions. https://www.cdc.gov/coronavirus/2 019-ncov/vaccines/faq.html [facility] Patient Portal Access Instructions: Stay connected with your healthcare team and access your personal medical information anytime with the [facility] Patient Portal. If you would like a full copy of your medical records please contact the [facility] Medical Records Department Sunday through Sunday between 8a.m. and 4:30p.m. Please follow the directions below to access the portal: 1.Access the email account you provided upon registration to the hospital.2.Look for an invitation email from [facility].3.Open the email and access the invitation link: Accept Invitation to [facility]4.Fill in the required longo to create your account. Sign into [email or web address] with your username and password that you [...] you will allow to register on the [facility] Patient Portal for access to your information. You can also access the [facility] Patient Portal on the SMART stuart. Simply click on Health Records under Health Data and then click on the [facility] logo. HOW TO SAFELY DISPOSE OF PRESCRIPTION [...] Call your local pharmacy or go to http://Sjh direct marketing concepts.Furnish.co.uk/8P0Bd8e to find one close to you.3.Make use of household items: Use cat litter or old coffee grounds to dispose medications if other options are not available. Mix your drugs with these household products, seal them in an airtight container and throw it into the garbage. Call [facility]: [phone] to be sure your drugs can be [...] been reviewed and explained to me and IHAYLIE JAIME L understand my current condition and have read and understand these discharge instructions. I have received a written copy of the plan/instructions. If I have questions, I am aware that I should contact my doctor. Patient/Sonoscope Operator Signature: Date/Time: Relationship to Patient: ____ Witness Name/Signature: Date/Time: [facility] Evaluation + Plan note Note Date & Type Note Facility Evaluation + Plan note No data available for this section [facility] Evaluation note Note Date & Type Note Facility Evaluation note No assessment information [facility] Work Phone: Chief Complaint and Reason for Visit Chief Complaint NODULE Chief Complaint NODULE Benign neoplasm of pituitary gland Chief Complaint NODULE Benign neoplasm of pituitary gland SCREENING Chief Complaint SCREENING Advance Directives No Advanced Directives Records Found Advance Directive Response Recorded Date/ Time Living Will No October 25, 2020 8:11am Power of Superintendent No October 25 8:11am Advance Directive Response Recorded Date/ Time Living Will No October 25, 2020 9:11am Power of Superintendent No October 25 9:11am Summary Purpose Family History No Family History Records Found Additional Source Comments Source Comments (unrecognize d section and content) In the event this informatio n is protected by the Federal Confidentiality of Alcohol and Drug Abuse Patient Records regulations: The Federal rules restrict any use of the information to criminally investigate or prosecute any alcohol or drug abuse patient.[facility] Care Teams (unrecognized sec tion and content) Data Systems Manager Relationship Specialty Start Date End Date Pilar [...] MD Primary Care Provider Active Genna Wu , SERGEI-C Attending Provider, Referring Provi kiet Active Goals [...] section and content) DATE CREATED AUTHOR 08/05/2023 [facility] DATE CREATED AUTHOR AUTHOR'S ORGANIZ ATION 03/16/2024 [facility] DATE CREATED AUTHOR AUTHOR'S ORGANIZ ATION 06/04/2025 [facility] FOR RECORDS PERTAINING TO PATIENTS WHO ARE [...] BE BASED ON THE PRIMARY CLINICAL RECORDS. [facility] [employer] [facility]. provides no warranty or guarantee of the accuracy or completeness of information in this document.
== END | disposition home or self-care (01) ==
LOC: MTLAB 12:57
PROVIDERS: PCP Family Medicine; Referring Provider Family Medicine; Visit Provider Family Medicine
DX: I10 Essential (primary) hypertension (principal); E01.0 Iodine-deficiency related diffuse (endemic) goiter; E66.9 Obesity, unspecified
CPT/HCPCS: 36415; 80053; 83036; 83735; 84439; 84443; 85025; 86376; 86800